=== PATIENT | female | born 1935 | race Caucasian/White ===

== ENCOUNTER 2017-04-11 09:48 | Emergency (ER) | payer MEDICARE, OTHER ==
[2017-04-11] MEDS ORDERED: DIPH,PERTUS(ACELL)TETVAC-LF 0.5 ML VIAL IM ONE (10:16)
--- NOTE | 2017-04-11 10:35 | ED ---
Wound/Laceration HPI - General Chief Complaint: Wound/Laceration Stated Complaint: fall, head injury Time Seen by Provider: 04/11/17 10:03 Source: patient Mode of arrival: ambulatory Limitations: no limitations - History of Present Illness Initial Comments: 81-year-old female presenting for evaluation of fall with head injury and laceration. She states that she was sleeping and for an unknown reason fell out of bed, hitting her head on her nightstand. She states this occurred at about 4 AM as she was immediately able to look up and see what time it was. She denies any loss of consciousness after hitting her head and was able to get up on her own. There is significant bleeding and she was able to control it on her own. She called her family and they came over to evaluate her laceration. Upon inspection there requested that she come to the ED for further treatment and evaluation. She denies any associated ataxia, dizziness, lightheadedness, change in vision, slurred speech, weakness, nausea, vomiting, or difficulty swallowing. She further denies any anticoagulation use. - Related Data Home Medications Medication Instructions Recorded Confirmed ALPRAZolam [Xanax] 0.25 mg PO Q8HR PRN 04/11/17 04/11/17 Acetaminophen with Codeine 1 tab PO QID PRN 04/11/17 04/11/17 [Tylenol w/codeine #3] Simvastatin [Zocor] 40 mg PO HS 04/11/17 04/11/17 diphenhydrAMINE HCL [Benadryl] 25 mg PO HS PRN 04/11/17 04/11/17 Allergies Allergy/AdvReac Type Severity Reaction Status Date / Time bee pollen Allergy Anaphylaxis Verified 04/11/17 11:06 cat dander Allergy Cough Verified 04/11/17 11:06 maple tree Allergy Cough Uncoded 04/11/17 09:56 Review of Systems ROS Statement: Those systems with pertinent positive or pertinent negative responses have been documented in the HPI. ROS Other: All systems not noted in ROS Statement are negative. Constitutional: Denies: fever, chills Eyes: Denies: eye pain, vision change ENT: Denies: ear pain, throat pain, dental pain Respiratory: Denies: cough, dyspnea Cardiovascular: Denies: chest pain, palpitations Gastrointestinal: Denies: abdominal pain, nausea, vomiting Musculoskeletal: Denies: back pain, arthralgia, myalgia Skin: Reports: lesions, other (Laceration to scalp) Neurological: Denies: headache, weakness, numbness, paresthesias, confusion, abnormal gait, vertigo Hematological/Lymphatic: Denies: easy bleeding, easy bruising Past Medical History Past Medical History: Hyperlipidemia, Osteoarthritis (OA) Additional Past Medical History / Comment(s): Chronic kidney disease pt states it is asymptomatic and the is just watching it History of Any Multi-Drug Resistant Organisms: None Reported Past Surgical History: Section, Heart Catheterization, Tonsillectomy Additional Past Surgical History / Comment(s): pt had eye tooth extraction on 04/06/17, wisdom, 2 ectopic pregnancies, left wrist Past Psychological History: Anxiety, Depression Smoking Status: Never smoker Past Alcohol Use History: Rare Past Drug Use History: None Reported General Exam Limitations: no limitations General appearance: alert, in no apparent distress Head exam: Present: normocephalic, other (Laceration to the left side of parietal scalp) Eye exam: Present: normal appearance, PERRL, EOMI. Absent: scleral icterus, conjunctival injection, periorbital swelling ENT exam: Present: normal exam, mucous membranes moist Neck exam: Present: normal inspection. Absent: tenderness, meningismus, lymphadenopathy Respiratory exam: Present: normal lung sounds bilaterally. Absent: respiratory distress, wheezes, rales, rhonchi, stridor Cardiovascular Exam: Present: regular rate, normal rhythm, normal heart sounds. Absent: systolic murmur, diastolic murmur, rubs, gallop, clicks GI/Abdominal exam: Present: soft. Absent: distended, tenderness, guarding, rebound, rigid Rectal exam: Present: deferred Extremities exam: Present: normal inspection, full ROM, normal capillary refill. Absent: tenderness, pedal edema, joint swelling, calf tenderness Back exam: Present: normal inspection. Absent: tenderness Neurological exam: Present: alert, oriented X3, CN II-XII intact. Absent: altered Psychiatric exam: Present: normal affect, normal mood Skin exam: Present: warm, dry, other (1 inch laceration to the left side of the parietal scalp) Course Vital Signs 04/11/17 09:48 Temperature 99.3 F Pulse Rate 80 Respiratory 18 Rate Blood Pressure 140/65 O2 Sat by Pulse 96 Oximetry Medical Decision Making - Medical Decision Making 81-year-old female presenting for evaluation of head injury with laceration to the left parietal scalp. She states this occurred at about 4 AM due to falling out of her bed. She denies any loss of consciousness or anticoagulation use. Bleeding controlled prior to arrival to the ED. On physical examination she does have a 1 inch laceration to the before mentioned area, bleeding controlled, and there is no extension to the bone/galea. Cranial nerves II through XII intact without focal neurologic deficit in vision is at her baseline. Patient observed ambulating with normal gait and station. We'll obtain CT head and neck, update her tetanus, and await results before repair laceration. Disposition Clinical Impression: Scalp laceration, Head injury, Fall Disposition: HOME SELF-CARE Condition: Stable Instructions: Staple Care (ED), Fall Prevention (ED) Referrals: Jena Logan MD [Primary Care Provider] - 1-2 days Time of Disposition: 11:54
--- NOTE | 2017-04-11 10:57 | CT ---
EXAMINATION TYPE: CT brain mini mi DATE OF EXAM: 04/11/2017 COMPARISON: NONE HISTORY: Fall, head injury CT DLP: brain 1054.2, Cervical 306.2 mGycm Automated exposure control for dose reduction was used. TECHNIQUE: CT scan of the head and cervical spine are performed without contrast. FINDINGS: BRAIN: Central structures are midline. There is no evidence of hydrocephalus. There is diffuse perive ntricular white matter lucency, compatible with chronic white matter ischemic change. There is lucenc y within the vicente which may be artifactual or may represent an old pontine infarct. No acute focal le david, mass effect or midline shift is seen. I do not see evidence of intracranial blood. Visualized p ortions of the paranasal sinuses and mastoids are clear. No depressed skull fracture is seen. The zyg omatic arches are intact. The pterygoid plates are intact. The rivera of the orbits and visualized por tions of the maxillary sinus are intact. IMPRESSION: 1. NO ACUTE INTRACRANIAL ABNORMALITY. 2. CHRONIC WHITE MATTER ISCHEMIC CHANGE. 3. I CANNOT EXCLUDE AN OLD PONTINE INFARCT. CERVICAL SPINE: There are mild emphysematous changes within the lungs. Prevertebral soft tissues are normal. There is a minimal retrograde listhesis of C5 on C6. Vertebral body height and alignment are otherwis e maintained. Atlantoaxial relationships are normal. There is disc space loss and hypertrophic spondy losis at C4-5, C5-6 and C6-7. There is uncovertebral joint disease at these levels. There is facet ar thropathy on the left at C3-4 no fracture is seen. IMPRESSION: 1. NO ACUTE OSSEOUS LESION. 2. DEGENERATIVE CHANGE. 3. MILD EMPHYSEMATOUS CHANGES WITHIN THE LUNGS.
[2017-04-11 12:16] VITALS: BP 138/74; PULSE 82; RESP 17; TEMP 98.7
== END 2017-04-11 12:15 | disposition home or self-care (01) ==
LOC: EC 09:48
DX: S01.01XA Laceration without foreign body of scalp, initial encounter (principal); E78.5 Hyperlipidemia, unspecified; Z79.899 Other long term (current) drug therapy; Z91.030 Bee allergy status; Z91.09 Other allergy status, other than to drugs and biological substances; Z23 Encounter for immunization; W06.XXXA Fall from bed, initial encounter
CPT/HCPCS: 70450; 72125; 90471; 90715; 99283

== ENCOUNTER 2018-01-03 07:31 | Emergency (ER) | payer MEDICARE, OTHER ==
[2018-01-03 07:41] VITALS: BP 128/87; PULSE 76; RESP 18; TEMP 98.8
[2018-01-03] MEDS ORDERED: methylPREDNISolone SOD SUCCI 125 MG/2 ML VIAL IM ONE (07:57)
--- NOTE | 2018-01-03 07:59 | ED ---
General Adult HPI - General Chief complaint: Skin/Abscess/Foreign Body Stated complaint: Poison Kalpana Time Seen by Provider: 01/03/18 07:35 Source: patient, RN notes reviewed Mode of arrival: ambulatory Limitations: no limitations - History of Present Illness Initial comments: This is an 82-year-old female presents emergency department stating that she got into some poison kalpana on Wednesday and she's been trying to put up with the itch since but she states she normally needs some steroids. Patient has raised erythematous patch on her right forehead and left cheek right wrist and left thigh. Patient states the areas are very itchy. Are not spreading. Patient states she gets this quite a bit. Patient states she's been using calamine lotion which helped only a little bit. Patient denies any difficulty swallowing or difficulty breathing. Patient denies any other symptoms at this time. - Related Data Home Medications Medication Instructions Recorded Confirmed ALPRAZolam [Xanax] 0.25 mg PO Q8HR PRN 04/11/17 04/11/17 Acetaminophen with Codeine 1 tab PO QID PRN 04/11/17 04/11/17 [Tylenol w/codeine #3] Simvastatin [Zocor] 40 mg PO HS 04/11/17 04/11/17 diphenhydrAMINE HCL [Benadryl] 25 mg PO HS PRN 04/11/17 04/11/17 Previous Rx's Medication Instructions Recorded predniSONE 40 mg PO DAILY #8 tab 01/03/18 Allergies Allergy/AdvReac Type Severity Reaction Status Date / Time bee pollen Allergy Anaphylaxis Verified 01/03/18 07:41 cat dander Allergy Cough Verified 01/03/18 07:41 maple tree Allergy Cough Uncoded 01/03/18 07:41 Review of Systems ROS Statement: Those systems with pertinent positive or pertinent negative responses have been documented in the HPI. ROS Other: All systems not noted in ROS Statement are negative. Past Medical History Past Medical History: Hyperlipidemia, Osteoarthritis (OA) Additional Past Medical History / Comment(s): stage 3 Chronic kidney disease pt states it is asymptomatic and the is just watching it History of Any Multi-Drug Resistant Organisms: None Reported Past Surgical History: Section, Heart Catheterization, Tonsillectomy Additional Past Surgical History / Comment(s): pt had eye tooth extraction on 04/06/17, wisdom, 2 ectopic pregnancies, left wrist Past Psychological History: Anxiety, Depression Smoking Status: Never smoker Past Alcohol Use History: Rare Past Drug Use History: None Reported General Exam - General Exam Comments Initial Comments: GENERAL Patient is well-developed and well-nourished. Patient is in mild distress. EYES Patient's pupils are equal and round. Extraocular motion is intact SKIN Patient has some redness and slightly raised area on the right side of her forehead and the left side of her face as well as her right wrist below where gloves would've been. Patient also states she has an area on her left thigh but she has pants on at this time. NEURO The patient is alert and oriented 3 PYSCH Patient has normal interpersonal interactions. MUSCULOSKELETAL All 4 times and full range of motion. Limitations: no limitations Course Vital Signs 01/03/18 07:38 Temperature 98.8 F Pulse Rate 76 Respiratory 18 Rate Blood Pressure 128/87 O2 Sat by Pulse 98 Oximetry Disposition Clinical Impression: Poison kalpana Disposition: HOME SELF-CARE Condition: Good Instructions: Poison Kalpana (ED) Additional Instructions: Patient can also try to use some hydrocortisone ointment or lotion. Patient can also take Benadryl for the itching particularly at night before bedtime. If symptoms worsen or change patient can return to the emergency department follow-up with primary medical care doctor Prescriptions: predniSONE 40 mg PO DAILY #8 tab Is patient prescribed a controlled substance at d/c from ED?: No Referrals: Jena Logan MD [Primary Care Provider] - 1-2 days Time of Disposition: 07:59
== END 2018-01-03 08:14 | disposition home or self-care (01) ==
LOC: EC 07:31
DX: L23.7 Allergic contact dermatitis due to plants, except food (principal); E78.5 Hyperlipidemia, unspecified; Z95.5 Presence of coronary angioplasty implant and graft; Z91.030 Bee allergy status; Z91.09 Other allergy status, other than to drugs and biological substances; Z79.899 Other long term (current) drug therapy
CPT/HCPCS: 99282; 96372; J2930

== ENCOUNTER → 2018-01-31 | Outpatient (CLI) | payer MEDICARE, OTHER ==
[2018-01-31 14:16] LABS: Basophils % (A) 1 %; Eosinophils # (A) 0.2 k/uL (0-0.7); Eosinophils % (A) 3 %; HGB 12.9 gm/dL (11.4-16.0); Lymphocytes # (A) 1.1 k/uL (1.0-4.8); Lymphocytes % (A) 22 %; MCH 32.9 pg (25.0-35.0); MCHC 33.1 g/dL (31.0-37.0); MCV 99.4 fL (80.0-100.0); Mean Platelet Volume 7.5; Monocytes # (A) 0.2 k/uL (0-1.0); Monocytes % (A) 5 %; Neutrophils # (A) 3.3 k/uL (1.3-7.7); Neutrophils % (A) 68 %; Platelet Count 248 k/uL (150-450); RBC 3.92 m/uL (3.80-5.40); RDW 13.8 % (11.5-15.5); WBC 4.9 k/uL (3.8-10.6)
[2018-01-31 14:36] LABS: Calcium 9.9 mg/dL (8.4-10.2); Potassium 4.8 mmol/L (3.5-5.1); Uric Acid 4.4 mg/dL (3.7-7.4)
[2018-01-31 18:42] LABS: Vitamin D 25 Hydroxy 38.2 ng/mL (30.0-100.0)
[2018-01-31 20:04] LABS: Parathyroid Hormone Intact 81.9 pg/mL (14.0-72.0)
== END | disposition home or self-care (01) ==
LOC: LABWHC1 13:13
PROVIDERS: ATTEND Family Medicine
DX: N18.3 Chronic kidney disease, stage 3 (moderate) (principal)
CPT/HCPCS: 36415; 80048; 82043; 82306; 82570; 83735; 83970; 84100; 84550; 85025

== ENCOUNTER 2018-04-14 18:56 | Emergency (ER) | payer MEDICARE, OTHER ==
[2018-04-14] MEDS ORDERED: SODIUM CHLORIDE 0.9% 500 ML IV ONE (19:33)
--- NOTE | 2018-04-14 19:35 | ED ---
General Adult HPI - General Chief complaint: Dizziness Stated complaint: dizziness Time Seen by Provider: 04/14/18 19:04 Source: patient, RN notes reviewed, old records reviewed Mode of arrival: wheelchair Limitations: no limitations - History of Present Illness Initial comments: 82-year-old female presents for evaluation of lightheadedness and dizziness throughout the day today. Patient denies syncopal episode. Denies focal numbness or weakness. Complains of some generalized weakness as well. Denies chest pain. Denies dyspnea. Denies cough. Denies abdominal pain or nausea vomiting. She does report some diarrhea which is resolving. She has intermittent constipation and diarrhea secondary to use of Tylenol 3 treated with laxatives. This is unchanged over the past 15 years. Patient denies palpitations. Denies fever or chills. - Related Data Home Medications Medication Instructions Recorded Confirmed ALPRAZolam [Xanax] 0.25 mg PO Q8HR PRN 04/11/17 04/14/18 Acetaminophen with Codeine 1 tab PO TID PRN 04/11/17 04/14/18 [Tylenol w/codeine #3] Simvastatin [Zocor] 40 mg PO HS 04/11/17 04/14/18 diphenhydrAMINE HCL [Benadryl] 25 mg PO HS PRN 04/11/17 04/14/18 Allergies Allergy/AdvReac Type Severity Reaction Status Date / Time bee pollen Allergy Anaphylaxis Verified 04/14/18 19:05 cat dander Allergy Cough Verified 04/14/18 19:05 maple tree Allergy Cough Uncoded 04/14/18 19:00 Review of Systems ROS Statement: Those systems with pertinent positive or pertinent negative responses have been documented in the HPI. ROS Other: All systems not noted in ROS Statement are negative. Past Medical History Past Medical History: Hyperlipidemia, Osteoarthritis (OA) Additional Past Medical History / Comment(s): stage 3 Chronic kidney disease pt states it is asymptomatic and the is just watching it History of Any Multi-Drug Resistant Organisms: None Reported Past Surgical History: Section, Heart Catheterization, Tonsillectomy Additional Past Surgical History / Comment(s): pt had eye tooth extraction on 04/06/17, wisdom, 2 ectopic pregnancies, left wrist Past Psychological History: Anxiety, Depression Smoking Status: Never smoker Past Alcohol Use History: Occasional Past Drug Use History: None Reported General Exam Limitations: no limitations General appearance: alert, in no apparent distress Head exam: Present: atraumatic, normocephalic Eye exam: Present: normal appearance, PERRL ENT exam: Present: mucous membranes dry Neck exam: Present: normal inspection. Absent: tenderness Respiratory exam: Present: normal lung sounds bilaterally. Absent: respiratory distress, wheezes Cardiovascular Exam: Present: regular rate, normal rhythm GI/Abdominal exam: Present: soft. Absent: distended, tenderness Extremities exam: Present: normal inspection, normal capillary refill. Absent: pedal edema Neurological exam: Present: alert, oriented X3, CN II-XII intact. Absent: motor sensory deficit Psychiatric exam: Present: normal affect, normal mood Skin exam: Present: warm, dry, intact. Absent: cyanosis, diaphoretic Course Vital Signs 04/14/18 04/14/18 04/14/18 18:59 19:39 20:00 Temperature 98.2 F Pulse Rate 75 70 80 Pulse Rate [ Sitting Ventilation Mechanic] Pulse Rate [ Standing Ventilation Mechanic ] Pulse Rate [ Supine Ventilation Mechanic] Respiratory 20 16 16 Rate Blood Pressure 157/76 166/84 Blood Pressure [Right Arm Sitting] Blood Pressure [Right Arm Standing] Blood Pressure [Right Arm Supine] O2 Sat by Pulse 99 98 98 Oximetry 04/14/18 04/14/18 20:22 21:27 Temperature Pulse Rate Pulse Rate [ 69 Sitting Ventilation Mechanic] Pulse Rate [ 69 Standing Ventilation Mechanic ] Pulse Rate [ 71 Supine Ventilation Mechanic] Respiratory 16 Rate Blood Pressure Blood Pressure 158/68 [Right Arm Sitting] Blood Pressure 151/74 [Right Arm Standing] Blood Pressure 167/73 [Right Arm Supine] O2 Sat by Pulse Oximetry EKG Findings - EKG Comments: EKG Findings:: EKG: Sinus rhythm with PVC, rate of 71, WI interval 172, QRS duration 74, QTC [address] segment elevation or depression Medical Decision Making - Medical Decision Making 82-year-old female presenting with lightheadedness and dizziness. Patient has nonfocal neurologic exam. She is well-appearing. No ataxia. Workup in the emergency department reveals normal sinus rhythm on EKG, chest x-ray with no acute cardiopulmonary disease, normal CBC, normal CMP, negative urinalysis. Head CT is obtained negative for intracranial hemorrhage or mass effect. On reevaluation I did have a lengthy discussion with the patient and her daughter, patient does report report that tomorrow is the anniversary of her 's . Both her and her daughter think this may be related to anxiety. They are offered observation for further monitoring, para they declined, prefer discharge at this time. Patient will be present with any change in her worsening symptoms. - Lab Data Result diagrams: 04/14/18 19:40 04/14/18 19:40 Lab Results 04/14/18 04/14/18 04/14/18 Range/Units 19:40 19:40 19:40 WBC 5.3 (3.8-10.6) k/uL RBC 3.66 L (3.80-5.40) m/uL Hgb 12.4 (11.4-16.0) gm/dL Hct 35.8 (34.0-46.0) % MCV 97.8 (80.0-100.0) fL MCH 33.8 (25.0-35.0) pg MCHC 34.6 (31.0-37.0) g/dL RDW 12.7 (11.5-15.5) % Plt Count 186 (150-450) k/uL Neutrophils % 64 % Lymphocytes % 25 % Monocytes % 6 % Eosinophils % 3 % Basophils % 1 % Neutrophils # 3.4 (1.3-7.7) k/uL Lymphocytes # 1.3 (1.0-4.8) k/uL Monocytes # 0.3 (0-1.0) k/uL Eosinophils # 0.2 (0-0.7) k/uL Basophils # 0.0 (0-0.2) k/uL PT (9.0-12.0) sec INR (<1.2) Sodium 137 (137-145) mmol/L Potassium 4.4 (3.5-5.1) mmol/L Chloride 105 (98-107) mmol/L Carbon Dioxide 23 (22-30) mmol/L Anion Gap 9 mmol/L BUN 21 H (7-17) mg/dL Creatinine 0.97 (0.52-1.04) mg/dL Est GFR (CKD-EPI)AfAm 63 (>60 ml/min/1.73 sqM) Est GFR (CKD-EPI)NonAf 55 (>60 ml/min/1.73 sqM) Glucose 96 (74-99) mg/dL Plasma Lactic Acid Tony 0.5 L (0.7-2.0) mmol/L Calcium 9.3 (8.4-10.2) mg/dL Total Bilirubin 0.5 (0.2-1.3) mg/dL AST 21 (14-36) U/L ALT 27 (9-52) U/L Alkaline Phosphatase 76 (38-126) U/L Total Creatine Kinase (30-135) U/L CK-MB (CK-2) (0.0-2.4) ng/mL CK-MB (CK-2) Rel Index Troponin I (0.000-0.034) ng/mL Total Protein 6.4 (6.3-8.2) g/dL Albumin 3.8 (3.5-5.0) g/dL Urine Color Urine Appearance (Clear) Urine pH (5.0-8.0) Ur Specific [place] (1.001-1.035) Urine Protein (Negative) Urine Glucose (UA) (Negative) Urine Ketones (Negative) Urine Blood (Negative) Urine Nitrite (Negative) Urine Bilirubin (Negative) Urine Urobilinogen (<2.0) mg/dL Ur Leukocyte Esterase (Negative) Urine RBC (0-5) /hpf Urine WBC (0-5) /hpf Ur Squamous Epith Cells (0-4) /hpf Urine Bacteria (None) /hpf 04/14/18 04/14/18 04/14/18 Range/Units 19:40 19:40 20:00 WBC (3.8-10.6) k/uL RBC (3.80-5.40) m/uL Hgb (11.4-16.0) gm/dL Hct (34.0-46.0) % MCV (80.0-100.0) fL MCH (25.0-35.0) pg MCHC (31.0-37.0) g/dL RDW (11.5-15.5) % Plt Count (150-450) k/uL Neutrophils % % Lymphocytes % % Monocytes % % Eosinophils % % Basophils % % Neutrophils # (1.3-7.7) k/uL Lymphocytes # (1.0-4.8) k/uL Monocytes # (0-1.0) k/uL Eosinophils # (0-0.7) k/uL Basophils # (0-0.2) k/uL PT 10.8 (9.0-12.0) sec INR 1.1 (<1.2) Sodium (137-145) mmol/L Potassium (3.5-5.1) mmol/L Chloride (98-107) mmol/L Carbon Dioxide (22-30) mmol/L Anion Gap mmol/L BUN (7-17) mg/dL Creatinine (0.52-1.04) mg/dL Est GFR (CKD-EPI)AfAm (>60 ml/min/1.73 sqM) Est GFR (CKD-EPI)NonAf (>60 ml/min/1.73 sqM) Glucose (74-99) mg/dL Plasma Lactic Acid Tnoy (0.7-2.0) mmol/L Calcium (8.4-10.2) mg/dL Total Bilirubin (0.2-1.3) mg/dL AST (14-36) U/L ALT (9-52) U/L Alkaline Phosphatase (38-126) U/L Total Creatine Kinase 62 (30-135) U/L CK-MB (CK-2) 0.7 (0.0-2.4) ng/mL CK-MB (CK-2) Rel Index 1.1 Troponin I <0.012 (0.000-0.034) ng/mL Total Protein (6.3-8.2) g/dL Albumin (3.5-5.0) g/dL Urine Color Light Yellow Urine Appearance Clear (Clear) Urine pH 5.0 (5.0-8.0) Ur Specific [place] 1.006 (1.001-1.035) Urine Protein Negative (Negative) Urine Glucose (UA) Negative (Negative) Urine Ketones Negative (Negative) Urine Blood Small H (Negative) Urine Nitrite Negative (Negative) Urine Bilirubin Negative (Negative) Urine Urobilinogen <2.0 (<2.0) mg/dL Ur Leukocyte Esterase Negative (Negative) Urine RBC 1 (0-5) /hpf Urine WBC 1 (0-5) /hpf Ur Squamous Epith Cells 1 (0-4) /hpf Urine Bacteria Rare H (None) /hpf Disposition Clinical Impression: Dehydration, Near syncope Disposition: HOME SELF-CARE Condition: Good Instructions: Near Syncope (ED), Dehydration (ED), Anxiety (ED) Is patient prescribed a controlled substance at d/c from ED?: No Referrals: Jena Logan MD [Primary Care Provider] - 1-2 days Time of Disposition: 22:23
[2018-04-14 19:40] VITALS: RESP 16
[2018-04-14 19:58] LABS: Basophils % (A) 1 %; Eosinophils # (A) 0.2 k/uL (0-0.7); Eosinophils % (A) 3 %; HCT 35.8 % (34.0-46.0); HGB 12.4 gm/dL (11.4-16.0); Lymphocytes # (A) 1.3 k/uL (1.0-4.8); Lymphocytes % (A) 25 %; MCH 33.8 pg (25.0-35.0); MCHC 34.6 g/dL (31.0-37.0); MCV 97.8 fL (80.0-100.0); Monocytes # (A) 0.3 k/uL (0-1.0); Monocytes % (A) 6 %; Neutrophils # (A) 3.4 k/uL (1.3-7.7); Neutrophils % (A) 64 %; Platelet Count 186 k/uL (150-450); RBC 3.66 m/uL (3.80-5.40); RDW 12.7 % (11.5-15.5); WBC 5.3 k/uL (3.8-10.6)
[2018-04-14 20:03] LABS: INR 1.1 (<1.2); Prothrombin Time 10.8 sec (9.0-12.0)
[2018-04-14 20:08] LABS: Albumin 3.8 g/dL (3.5-5.0); Calcium 9.3 mg/dL (8.4-10.2); Potassium 4.4 mmol/L (3.5-5.1); Total Bilirubin 0.5 mg/dL (0.2-1.3); Total Protein 6.4 g/dL (6.3-8.2)
[2018-04-14 20:10] LABS: Appearance,Urine Clear (Clear); Bacteria,Urine Rare /hpf; Bilirubin,Urine Negative (Negative); Blood,Urine Small (Negative); Color,Urine Light Yellow; Glucose,Urine (UA) Negative (Negative); Ketones,Urine Negative (Negative); Leukocyte Esterase,Urine Negative (Negative); Nitrite,Urine Negative (Negative); Protein,Urine Negative (Negative); RBC,Urine 1 /hpf (0-5); Specific Gravity,Urine 1.006 (1.001-1.035); Squamous Epithelial Cell,Urine 1 /hpf (0-4); Urobilinogen,Urine <2.0 mg/dL (<2.0); WBC,Urine 1 /hpf (0-5)
[2018-04-14 20:10] LABS: Creatine Kinase 62 U/L (30-135)
--- NOTE | 2018-04-14 20:16 | XR ---
EXAMINATION TYPE: XR chest 2V DATE OF EXAM: 04/14/2018 COMPARISON: None HISTORY: Weakness. Dizziness TECHNIQUE: Frontal and lateral views of the chest are obtained. FINDINGS: There is no heart failure nor confluent pneumonic infiltrate. Costophrenic angles are brian r. Thoracic aorta is atheromatous. There is no pleural effusion. There are chest leads. IMPRESSION: No active cardiopulmonary disease.
[2018-04-14 20:23] LABS: Creatine Kinase MB 0.7 ng/mL (0.0-2.4); Troponin I <0.012 ng/mL (0.000-0.034)
--- NOTE | 2018-04-14 21:29 | CT ---
EXAMINATION TYPE: CT brain wo con DATE OF EXAM: 04/14/2018 COMPARISON: 04/11/2017 HISTORY: Dizziness. CT DLP: 1042.2 mGycm Automated exposure control for dose reduction was used. FINDINGS: There is mild cerebral cortical atrophy. There is no mass effect nor midline shift. There is no sign of intracranial hemorrhage. The calvarium is intact. IMPRESSION: MILD ATROPHY. NO ACUTE INTRACRANIAL ABNORMALITY. NO CHANGE.
[2018-04-14 22:24] VITALS: BP 178/78; PULSE 84; TEMP 98
== END 2018-04-14 22:43 | disposition home or self-care (01) ==
LOC: EC 18:56
DX: E86.0 Dehydration (principal); E78.5 Hyperlipidemia, unspecified; Z91.018 Allergy to other foods; Z91.048 Other nonmedicinal substance allergy status; Z79.899 Other long term (current) drug therapy
CPT/HCPCS: 36415; 70450; 71046; 80053; 81001; 82550; 82553; 83605; 84484; 85025; 85610; 93005; 99285

== ENCOUNTER → 2018-08-23 | Outpatient (CLI) | payer MEDICARE, OTHER ==
[2018-08-23 16:19] LABS: Basophils # (A) 0.1 k/uL (0-0.2); Basophils % (A) 1 %; Eosinophils # (A) 0.2 k/uL (0-0.7); Eosinophils % (A) 4 %; HCT 39.8 % (34.0-46.0); HGB 12.4 gm/dL (11.4-16.0); Lymphocytes # (A) 1.7 k/uL (1.0-4.8); Lymphocytes % (A) 28 %; MCH 31.8 pg (25.0-35.0); MCHC 31.1 g/dL (31.0-37.0); MCV 102.3 fL (80.0-100.0); Macrocytosis Slight; Mean Platelet Volume 7.6; Monocytes # (A) 0.3 k/uL (0-1.0); Monocytes % (A) 5 %; Neutrophils # (A) 3.6 k/uL (1.3-7.7); Neutrophils % (A) 60 %; Platelet Count 197 k/uL (150-450); RBC 3.89 m/uL (3.80-5.40); RDW 13.1 % (11.5-15.5)
[2018-08-24 02:27] LABS: Anion Gap 12.7 mmol/L (4.00-12.00); Calcium 9.6 mg/dL (8.7-10.3); Carbon Dioxide 25.3 mmol/L (21.6-31.8); Phosphorus 4.2 mg/dL (2.4-5.1); Potassium 4.2 mmol/L (3.5-5.5)
[2018-08-24 02:31] LABS: Parathyroid Hormone Intact 59.5 pg/mL (14.0-72.0)
[2018-08-24 02:42] LABS: Vitamin D 25 Hydroxy 58.9 ng/mL (30.0-100.0)
== END | disposition home or self-care (01) ==
LOC: LABWHC1 14:47
PROVIDERS: ATTEND Family Medicine
DX: N18.3 Chronic kidney disease, stage 3 (moderate) (principal); E55.9 Vitamin D deficiency, unspecified; N25.81 Secondary hyperparathyroidism of renal origin
CPT/HCPCS: 36415; 80048; 82043; 82306; 82570; 83735; 83970; 84100; 84550; 85025

== ENCOUNTER 2019-02-18 15:01 | Emergency (ER) | payer MEDICARE, OTHER ==
[2019-02-18 15:17] VITALS: BP 131/72; PULSE 75; RESP 18; TEMP 99.1
[2019-02-18] MEDS ORDERED: LIDOCAINE 5% PATCH TOPICAL STA ×2 (15:31→17:24)
[2019-02-18] MEDS ORDERED: MORPHINE SULFATE 2 MG/ML SYRINGE IVP ONE (15:31)
[2019-02-18] MEDS ORDERED: predniSONE 50 MG TAB PO STA (15:32)
[2019-02-18] MEDS ORDERED: MORPHINE SULFATE 2 MG/ML SYRINGE IM STA (15:52)
--- NOTE | 2019-02-18 17:06 | ED ---
Back Pain HPI - General Chief Complaint: Back Pain/Injury Stated Complaint: Back pain Time Seen by Provider: 02/18/19 15:17 Source: patient Limitations: no limitations - History of Present Illness Initial Comments: Patient is an 83-year-old female with history of spinal stenosis presents to the emergency Department with low back pain. Patient reports chronic back pain with occasional flareups of this one. Patient reports the current acute back pain started 2 days ago. Patient states the pain originates in the lumbosacral region and radiates along the posterior aspect of her left upper leg to the popliteal region. Patient reports taking [id number] analgesics with minimal improvement. Patient also reports applying cold, warm compress and taking hot showers with minimal improvement. Patient reports the pain is exacerbated with flexion and extension. Patient reports the pain is dull in nature. Patient denies saddle paresthesia, urinary or bladder incontinence. No red flags. - Related Data Home Medications Medication Instructions Recorded Confirmed ALPRAZolam [Xanax] 0.25 mg PO Q8HR PRN 04/11/17 02/18/19 Acetaminophen with Codeine 1 tab PO TID PRN 04/11/17 02/18/19 [Tylenol w/codeine #3] Previous Rx's Medication Instructions Recorded Cyclobenzaprine [Flexeril] 5 mg PO TID PRN #15 tablet 02/18/19 predniSONE 50 mg PO DAILY #5 tab 02/18/19 Allergies Allergy/AdvReac Type Severity Reaction Status Date / Time bee pollen Allergy Anaphylaxis Verified 02/18/19 16:50 cat dander Allergy Cough Verified 02/18/19 16:50 maple tree Allergy Cough Uncoded 02/18/19 16:51 Review of Systems ROS Statement: Those systems with pertinent positive or pertinent negative responses have been documented in the HPI. ROS Other: All systems not noted in ROS Statement are negative. Past Medical History Past Medical History: Hyperlipidemia, Osteoarthritis (OA) Additional Past Medical History / Comment(s): stage 3 Chronic kidney disease pt states it is asymptomatic and the is just watching it History of Any Multi-Drug Resistant Organisms: None Reported Past Surgical History: Section, Heart Catheterization, Tonsillectomy Additional Past Surgical History / Comment(s): pt had eye tooth extraction on 04/06/17, wisdom, 2 ectopic pregnancies, left wrist Past Psychological History: Anxiety Smoking Status: Never smoker Past Alcohol Use History: Occasional Past Drug Use History: None Reported General Exam Limitations: no limitations General appearance: alert, in no apparent distress, obese Head exam: Present: atraumatic, normocephalic, normal inspection Eye exam: Present: normal appearance, PERRL, EOMI Pupils: Present: normal accommodation ENT exam: Present: normal exam, normal oropharynx, mucous membranes moist, TM's normal bilaterally, normal external ear exam Neck exam: Present: normal inspection, full ROM Respiratory exam: Present: normal lung sounds bilaterally Cardiovascular Exam: Present: regular rate, normal rhythm, normal heart sounds Extremities exam: Present: normal inspection, full ROM Back exam: Present: normal inspection, tenderness (Tenderness on palpation), paraspinal tenderness (Lumbosacral region), vertebral tenderness (Lumbosacral), other (Positive leg raise test). Absent: full ROM (Limited range of motion with flexion and extension due to pain) Neurological exam: Present: alert, oriented X3 Psychiatric exam: Present: normal affect, normal mood Skin exam: Present: warm, intact, normal color Course Vital Signs 02/18/19 15:13 Temperature 99.1 F Pulse Rate 75 Respiratory 18 Rate Blood Pressure 131/72 O2 Sat by Pulse 95 Oximetry Medical Decision Making - Medical Decision Making Patient is an 83-year-old male with history of spinal stenosis presents to the emergency Department for low back pain. Patient was given a Lidoderm patch, prednisone and morphine. On reevaluation patient reports feeling much better and is ready to go home. Patient will be discharged with Flexeril. Patient advised not to drive or operate heavy machinery when taking the medication. I suspect the acute low back pain to be an exacerbation of her spinal stenosis. Patient advised to follow-up with orthopedics. Strict return parameters were thoroughly discussed the patient was understanding and agreeable. Case discusse d with physician. Disposition Clinical Impression: Mechanical back pain Disposition: HOME SELF-CARE Condition: Stable Instructions (If sedation given, give patient instructions): Acute Low Back Pain (ED) Additional Instructions: Please follow up with an weapons specialist. Please return to emergency department if symptoms worsen. Prescriptions: Cyclobenzaprine [Flexeril] 5 mg PO TID PRN #15 tablet PRN Reason: Muscle Spasm predniSONE 50 mg PO DAILY #5 tab Is patient prescribed a controlled substance at d/c from ED?: No Referrals: Jena Logan MD [Primary Care Provider] - 1-2 days Taras Lawrence MD [STAFF PHYSICIAN] - 1-2 days Time of Disposition: 17:07
== END 2019-02-18 17:33 | disposition home or self-care (01) ==
LOC: EC 15:01
DX: M54.5 Low back pain (principal); F41.9 Anxiety disorder, unspecified; N18.3 Chronic kidney disease, stage 3 (moderate); Z91.030 Bee allergy status; Z91.09 Other allergy status, other than to drugs and biological substances; Z95.5 Presence of coronary angioplasty implant and graft
CPT/HCPCS: 99283; 96372; J2270; J7512

== ENCOUNTER → 2019-04-11 | Outpatient (CLI) | payer MEDICARE, OTHER ==
[2019-04-11 14:44] LABS: HCT 38.1 % (34.0-46.0); HGB 12.8 gm/dL (11.4-16.0); MCH 34.1 pg (25.0-35.0); MCHC 33.6 g/dL (31.0-37.0); MCV 101.2 fL (80.0-100.0); Macrocytosis Slight; Mean Platelet Volume 8.3; Platelet Count 201 k/uL (150-450); RBC 3.76 m/uL (3.80-5.40); RDW 13.3 % (11.5-15.5); WBC 6.6 k/uL (3.8-10.6)
[2019-04-11 18:26] LABS: African American GFR (CKD) 48.4 (60.0-200.0); Anion Gap 14.2 mmol/L (4.00-12.00); Calcium 9.8 mg/dL (8.7-10.3); Carbon Dioxide 21.8 mmol/L (21.6-31.8); Magnesium 1.8 mg/dL (1.5-2.4); Potassium 4.3 mmol/L (3.5-5.5)
== END | disposition home or self-care (01) ==
LOC: LABWHC1 13:31
PROVIDERS: ATTEND Family Medicine
DX: N18.3 Chronic kidney disease, stage 3 (moderate) (principal); R00.0 Tachycardia, unspecified
CPT/HCPCS: 36415; 80048; 83735; 84443; 85027

== ENCOUNTER 2019-04-25 15:57 | Emergency (ER) | payer MEDICARE, OTHER ==
[2019-04-25 16:08] VITALS: RESP 18; TEMP 99
[2019-04-25] MEDS ORDERED: SODIUM CHLORIDE 0.9% 500 ML 500 ML IV STA (18:21)
[2019-04-25 18:51] LABS: Basophils # (A) 0.1 k/uL (0-0.2); Basophils % (A) 2 %; Eosinophils # (A) 0.1 k/uL (0-0.7); Eosinophils % (A) 1 %; HCT 36.2 % (34.0-46.0); HGB 11.6 gm/dL (11.4-16.0); Lymphocytes # (A) 1.1 k/uL (1.0-4.8); Lymphocytes % (A) 18 %; MCH 31.5 pg (25.0-35.0); MCV 98.5 fL (80.0-100.0); Monocytes # (A) 0.4 k/uL (0-1.0); Monocytes % (A) 6 %; Neutrophils # (A) 4.6 k/uL (1.3-7.7); Neutrophils % (A) 72 %; Platelet Count 205 k/uL (150-450); RBC 3.68 m/uL (3.80-5.40); RDW 12.9 % (11.5-15.5); WBC 6.4 k/uL (3.8-10.6)
[2019-04-25 18:58] LABS: Appearance,Urine Clear (Clear); Bilirubin,Urine Negative (Negative); Blood,Urine Small (Negative); Color,Urine Light Yellow; Glucose,Urine (UA) Negative (Negative); Ketones,Urine Trace (Negative); Leukocyte Esterase,Urine Negative (Negative); Mucus,Urine Rare /hpf; Nitrite,Urine Negative (Negative); Protein,Urine Negative (Negative); RBC,Urine 2 /hpf (0-5); Specific Gravity,Urine 1.008 (1.001-1.035); Squamous Epithelial Cell,Urine 1 /hpf (0-4); Urobilinogen,Urine <2.0 mg/dL (<2.0); WBC,Urine 3 /hpf (0-5)
--- NOTE | 2019-04-25 19:02 | ED ---
Arrhythmia/Palpitations HPI - General Chief Complaint: Arrhythmia/Palpitations Stated Complaint: AFIB Time Seen by Provider: 04/25/19 18:20 Source: patient, family, RN notes reviewed Mode of arrival: wheelchair Limitations: no limitations - History of Present Illness Initial Comments: This 83-year-old female presents emergency Department chief complaint of palpitations, elevated heart rate. 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 Patient states that she went home and was angry and states that she sat down to check her blood pressure and heart rate because she felt some palpitations. Her heart rate was pain 150-170. Pat ient states on April 11 she was diagnosed with A. fib and her PCPs office started on metoprolol on Eliquis. Patient states that she did recently see Dr. Jacobs who scheduled him out patient studies including echo. Patient states that she has no symptoms at this time. Symptoms resolved prior arrival. Patient had no chest pain denies any headache, dizziness, nausea vomiting. - Related Data Home Medications Medication Instructions Recorded Confirmed ALPRAZolam [Xanax] 0.25 mg PO Q8HR PRN 04/11/17 02/18/19 Acetaminophen with Codeine 1 tab PO TID PRN 04/11/17 02/18/19 [Tylenol w/codeine #3] Previous Rx's Medication Instructions Recorded Cyclobenzaprine [Flexeril] 5 mg PO TID PRN #15 tablet 02/18/19 predniSONE 50 mg PO DAILY #5 tab 02/18/19 Allergies Allergy/AdvReac Type Severity Reaction Status Date / Time bee pollen Allergy Anaphylaxis Verified 04/25/19 16:08 cat dander Allergy Cough Verified 04/25/19 16:08 maple tree Allergy Cough Uncoded 04/25/19 16:08 Review of Systems ROS Statement: Those systems with pertinent positive or pertinent negative responses have been documented in the HPI. ROS Other: All systems not noted in ROS Statement are negative. Past Medical History Past Medical History: Hyperlipidemia, Osteoarthritis (OA) Additional Past Medical History / Comment(s): stage 3 Chronic kidney disease pt states it is asymptomatic and the is just watching it. new dx: A-fib April 11 History of Any Multi-Drug Resistant Organisms: None Reported Past Surgical History: Section, Heart Catheterization, Tonsillectomy Additional Past Surgical History / Comment(s): pt had eye tooth extraction on 04/06/17, wisdom, 2 ectopic pregnancies, left wrist. epidural injections march 21 Past Psychological History: Anxiety Smoking Status: Never smoker Past Alcohol Use History: Occasional Past Drug Use History: None Reported General Exam Limitations: no limitations General appearance: alert, in no apparent distress Head exam: Present: atraumatic, normocephalic, normal inspection Eye exam: Present: normal appearance, PERRL, EOMI. Absent: scleral icterus, conjunctival injection, periorbital swelling ENT exam: Present: normal exam, normal oropharynx, mucous membranes moist Neck exam: Present: normal inspection, full ROM. Absent: tenderness, meningismus, lymphadenopathy Respiratory exam: Present: normal lung sounds bilaterally. Absent: respiratory distress, wheezes, rales, rhonchi, stridor Cardiovascular Exam: Present: regular rate, normal rhythm, normal heart sounds. Absent: systolic murmur, diastolic murmur, rubs, gallop, clicks GI/Abdominal exam: Present: soft, normal bowel sounds. Absent: distended, tenderness, guarding, rebound, rigid Neurological exam: Present: alert, oriented X3, CN II-XII intact, reflexes normal. Absent: motor sensory deficit Skin exam: Present: warm, dry, intact, normal color. Absent: rash Course Vital Signs 04/25/19 04/25/19 04/25/19 16:04 17:08 18:00 Temperature 99 F Pulse Rate 82 61 Pulse Rate [ 60 Shot Polisher ] Respiratory 18 Rate Blood Pressure 109/60 144/70 O2 Sat by Pulse 96 96 Oximetry 04/25/19 04/25/19 04/25/19 18:30 19:00 19:30 Temperature Pulse Rate 70 70 70 Pulse Rate [ Shot Polisher ] Respiratory 16 18 18 Rate Blood Pressure 142/68 156/77 160/73 O2 Sat by Pulse 95 98 97 Oximetry 04/25/19 19:40 Temperature Pulse Rate 72 Pulse Rate [ Shot Polisher ] Respiratory 18 Rate Blood Pressure 163/66 O2 Sat by Pulse 98 Oximetry EKG Findings - EKG Comments: EKG Findings:: EKG performed at 16:16 no sinus rhythm rate of 71. 150 QRS 72 QT status QTC 364/395 Medical Decision Making - Medical Decision Making 83-year-old female presented for an episode of tachycardia home. Patient states she was worked up and very anxious at this time. Symptoms quickly resolved prior arrival. Patient was recently diagnosed with A. fib she may have had a run of proximal A. fib though she is anticoagulated and metoprolol. Patient scheduled for outpatient echo, stress test and monitored. We discussed return parameters patient agrees with discharged in stable condition. - Lab Data Result diagrams: 04/25/19 17:33 04/25/19 17:33 Lab Results 04/25/19 04/25/19 04/25/19 Range/Units 17:33 17:33 17:33 WBC 6.4 (3.8-10.6) k/uL RBC 3.68 L (3.80-5.40) m/uL Hgb 11.6 (11.4-16.0) gm/dL Hct 36.2 (34.0-46.0) % MCV 98.5 (80.0-100.0) fL MCH 31.5 (25.0-35.0) pg MCHC 32.0 (31.0-37.0) g/dL RDW 12.9 (11.5-15.5) % Plt Count 205 (150-450) k/uL Neutrophils % 72 % Lymphocytes % 18 % Monocytes % 6 % Eosinophils % 1 % Basophils % 2 % Neutrophils # 4.6 (1.3-7.7) k/uL Lymphocytes # 1.1 (1.0-4.8) k/uL Monocytes # 0.4 (0-1.0) k/uL Eosinophils # 0.1 (0-0.7) k/uL Basophils # 0.1 (0-0.2) k/uL PT 11.2 (9.0-12.0) sec INR 1.1 (<1.2) APTT 24.8 (22.0-30.0) sec Sodium 138 (137-145) mmol/L Potassium 4.2 (3.5-5.1) mmol/L Chloride 103 (98-107) mmol/L Carbon Dioxide 26 (22-30) mmol/L Anion Gap 9 mmol/L BUN 15 (7-17) mg/dL Creatinine 0.91 (0.52-1.04) mg/dL Est GFR (CKD-EPI)AfAm 67 (>60 ml/min/1.73 sqM) Est GFR (CKD-EPI)NonAf 59 (>60 ml/min/1.73 sqM) Glucose 95 (74-99) mg/dL Calcium 9.5 (8.4-10.2) mg/dL Magnesium 2.1 (1.6-2.3) mg/dL Total Bilirubin 0.7 (0.2-1.3) mg/dL AST 19 (14-36) U/L ALT 19 (9-52) U/L Alkaline Phosphatase 63 (38-126) U/L Troponin I (0.000-0.034) ng/mL Total Protein 6.4 (6.3-8.2) g/dL Albumin 3.9 (3.5-5.0) g/dL TSH 1.300 (0.465-4.680) mIU/L Urine Color Urine Appearance (Clear) Urine pH (5.0-8.0) Ur Specific [place] (1.001-1.035) Urine Protein (Negative) Urine Glucose (UA) (Negative) Urine Ketones (Negative) Urine Blood (Negative) Urine Nitrite (Negative) Urine Bilirubin (Negative) Urine Urobilinogen (<2.0) mg/dL Ur Leukocyte Esterase (Negative) Urine RBC (0-5) /hpf Urine WBC (0-5) /hpf Ur Squamous Epith Cells (0-4) /hpf Urine Mucus (None) /hpf 04/25/19 04/25/19 Range/Units 17:33 17:33 WBC (3.8-10.6) k/uL RBC (3.80-5.40) m/uL Hgb (11.4-16.0) gm/dL Hct (34.0-46.0) % MCV (80.0-100.0) fL MCH (25.0-35.0) pg MCHC (31.0-37.0) g/dL RDW (11.5-15.5) % Plt Count (150-450) k/uL Neutrophils % % Lymphocytes % % Monocytes % % Eosinophils % % Basophils % % Neutrophils # (1.3-7.7) k/uL Lymphocytes # (1.0-4.8) k/uL Monocytes # (0-1.0) k/uL Eosinophils # (0-0.7) k/uL Basophils # (0-0.2) k/uL PT (9.0-12.0) sec INR (<1.2) APTT (22.0-30.0) sec Sodium (137-145) mmol/L Potassium (3.5-5.1) mmol/L Chloride (98-107) mmol/L Carbon Dioxide (22-30) mmol/L Anion Gap mmol/L BUN (7-17) mg/dL Creatinine (0.52-1.04) mg/dL Est GFR (CKD-EPI)AfAm (>60 ml/min/1.73 sqM) Est GFR (CKD-EPI)NonAf (>60 ml/min/1.73 sqM) Glucose (74-99) mg/dL Calcium (8.4-10.2) mg/dL Magnesium (1.6-2.3) mg/dL Total Bilirubin (0.2-1.3) mg/dL AST (14-36) U/L ALT (9-52) U/L Alkaline Phosphatase (38-126) U/L Troponin I <0.012 (0.000-0.034) ng/mL Total Protein (6.3-8.2) g/dL Albumin (3.5-5.0) g/dL TSH (0.465-4.680) mIU/L Urine Color Light Yellow Urine Appearance Clear (Clear) Urine pH 5.0 (5.0-8.0) Ur Specific [place] 1.008 (1.001-1.035) Urine Protein Negative (Negative) Urine Glucose (UA) Negative (Negative) Urine Ketones Trace H (Negative) Urine Blood Small H (Negative) Urine Nitrite Negative (Negative) Urine Bilirubin Negative (Negative) Urine Urobilinogen <2.0 (<2.0) mg/dL Ur Leukocyte Esterase Negative (Negative) Urine RBC 2 (0-5) /hpf Urine WBC 3 (0-5) /hpf Ur Squamous Epith Cells 1 (0-4) /hpf Urine Mucus Rare H (None) /hpf Disposition Clinical Impression: Tachycardia Disposition: HOME SELF-CARE Condition: Stable Instructions (If sedation given, give patient instructions): Heart Palpitations (ED) Additional Instructions: Please return to the Emergency Department if symptoms worsen or any other concerns. Is patient prescribed a controlled substance at d/c from ED?: No Referrals: Jena Logan MD [Primary Care Provider] - 1-2 days Time of Disposition: 20:12
[2019-04-25 19:04] LABS: INR 1.1 (<1.2); Partial Thromboplastin Time 24.8 sec (22.0-30.0); Prothrombin Time 11.2 sec (9.0-12.0)
[2019-04-25 19:05] LABS: Albumin 3.9 g/dL (3.5-5.0); Calcium 9.5 mg/dL (8.4-10.2); Magnesium 2.1 mg/dL (1.6-2.3); Potassium 4.2 mmol/L (3.5-5.1); Total Bilirubin 0.7 mg/dL (0.2-1.3); Total Protein 6.4 g/dL (6.3-8.2)
[2019-04-25 19:43] VITALS: BP 163/66; PULSE 72
== END 2019-04-25 20:29 | disposition home or self-care (01) ==
LOC: EC 15:57
DX: R00.0 Tachycardia, unspecified (principal); I48.91 Unspecified atrial fibrillation; Z91.030 Bee allergy status; Z91.048 Other nonmedicinal substance allergy status; Z79.01 Long term (current) use of anticoagulants; Z79.899 Other long term (current) drug therapy; Z95.818 Presence of other cardiac implants and grafts
CPT/HCPCS: 36415; 80053; 81001; 83735; 84443; 84484; 85025; 85610; 85730; 93005; 99285

== ENCOUNTER 2024-03-02 08:45 | Inpatient (IN) | payer MEDICARE, OTHER ==
--- NOTE | 2024-03-02 08:59 | ED ---
General Adult HPI - General Chief complaint: Arrhythmia/Palpitations Stated complaint: cardiac Time Seen by Provider: 03/02/24 08:50 Source: patient, family, EMS, RN notes reviewed, old records reviewed Mode of arrival: EMS Limitations: no limitations - History of Present Illness Initial comments: This is an 88-year-old female who is brought in by ambulance. Patient called her daughter last night and stated that she was feeling hot but the patient no rmally keeps her house at about 85 according to the daughter. Daughter states this morning she woke up and complained about being dizzy and sounded a little confused on the phone. Daughter states she also was vomiting and continued to complain about nausea. Patient was given 8 mg of Zofran in EMS and feeling much better. Patient denies ever having any chest pain or difficulty breathing or shortness of breath. However because the patient was dizzy and nauseated she thought she might be having a heart attack and that is why she originally called her daughter. Patient has no complaints currently. Patient [place] any recent fever chills or cough. Patient denies any abdominal pain. - Related Data Home Medications Medication Instructions Recorded Confirmed Apixaban [Eliquis] 2.5 mg PO BID 03/02/24 03/02/24 EPINEPHrine (Auto Inject) [Epipen] 0.3 mg IM ONCE PRN 03/02/24 03/02/24 Metoprolol Succinate (ER) [Toprol 25 mg PO BID 03/02/24 03/02/24 Xl] Allergies Allergy/AdvReac Type Severity Reaction Status Date / Time bee pollen Allergy Anaphylaxis Verified 03/02/24 11:19 cat dander Allergy Cough Verified 03/02/24 11:19 maple tree Allergy Cough Uncoded 03/02/24 11:19 Review of Systems ROS Statement: Those systems with pertinent positive or pertinent negative responses have been documented in the HPI. ROS Other: All systems not noted in ROS Statement are negative. Past Medical History Past Medical History: Hyperlipidemia, Osteoarthritis (OA) Additional Past Medical History / Comment(s): stage 3 Chronic kidney disease pt states it is asymptomatic and the is just watching it. new dx: A-fib April 11 History of Any Multi-Drug Resistant Organisms: None Reported Past Surgical History: Section, Heart Catheterization, Tonsillectomy Additional Past Surgical History / Comment(s): pt had eye tooth extraction on 04/06/17, wisdom, 2 ectopic pregnancies, left wrist. epidural injections march 21 Past Psychological History: Anxiety Past Alcohol Use History: Occasional Past Drug Use History: None Reported General Exam - General Exam Comments Initial Comments: GENERAL: Patient is well-developed and well-nourished. Patient is nontoxic and well- hydrated and is in mild distress. ENT: Neck is soft and supple. No significant lymphadenopathy is noted. Oropharynx is clear. Dry mucous membranes. Neck has full range of motion without eliciting any pain. EYES: The sclera were anicteric and conjunctiva were pink and moist. Extraocular movements were intact and pupils were equal round and reactive to light. Eyelids were unremarkable. PULMONARY: Unlabored respirations. Good breath sounds bilaterally. No audible rales r honchi or wheezing was noted. CARDIOVASCULAR: There is a regular rate and rhythm without any murmurs gallops or rubs. ABDOMEN: Soft and nontender with normal bowel sounds. SKIN: Skin is clear with no lesions or rashes and otherwise unremarkable. NEUROLOGIC: Patient is alert and oriented x3. Cranial nerves II through XII are grossly intact. Motor and sensory are also intact. Normal speech, volume and content. Symmetrical smile. MUSCULOSKELETAL: Normal extremities with adequate strength and full range of motion. LYMPHATICS: No significant lymphadenopathy is noted PSYCHIATRIC: Normal psychiatric evaluation. Limitations: no limitations Course Vital Signs 03/02/24 03/02/24 03/02/24 08:46 08:51 08:54 Temperature 97.9 F Pulse Rate 111 H Pulse Rate [ 116 H Research Director ] Respiratory 16 Rate Blood Pressure 167/117 172/98 O2 Sat by Pulse 96 Oximetry 03/02/24 03/02/24 10:09 10:36 Temperature Pulse Rate 113 H 138 H Pulse Rate [ Research Director ] Respiratory 16 16 Rate Blood Pressure 127/80 133/71 O2 Sat by Pulse 93 L 97 Oximetry Medical Decision Making - Medical Decision Making EKG is interpreted by myself. EKG shows atrial fibrillation with rapid ventricular response at 118 bpm QRS is 85 QT interval 311 QTc is 381. Patient's EKG shows no ST segment elevation or depression. Was pt. sent in by a medical professional or institution (, PA, GREASE REFINING SUPERVISOR, urgent care, hospital, or custodial...) When possible be specific @ -No Did you speak to anyone other than the patient for history (EMS, parent, family, police, friend...)? What history was obtained from this source @ -No Did you review nursing and triage notes (agree or disagree)? Why? @ -I reviewed and agree with nursing and triage notes Were old charts reviewed (outside hosp., previous admission, EMS record, old EKG, old radiological studies, urgent care reports/EKG's, custodial records)? Report findings @ -No old charts were reviewed Differential Diagnosis? @ -Differential Weakness: Hypoglycemia, shock, sepsis, hyponatremia, anemia, infection, TN, ETOH, adverse medicine reaction, overdose, stroke, this is not meant to be an all-inclusive list. EKG interpreted by me (3pts min.). @ -As above X-rays interpreted by me (1pt min.). @ -None done CT interpreted by me (1pt min.). @ -None done U/S interpreted by me (1pt. min.). @ -None done What testing was considered but not performed or refused? (CT, X-rays, U/S, labs)? Why? @ -None What meds were considered but not given or refused? Why? @ -None Did you discuss the management of the patient with other professionals (professionals i.e. , PA, GREASE REFINING SUPERVISOR, lab, RT, psych nurse, director social service, manager restaurant, teacher, risk officer, registered nurse hh case manager)? Give summary @ -I spoke with [facility], [facility] and they agreed to admit the patient. Spoke with Dr. Edward of nephrology and she agreed the patient could be admitted to the floor Was smoking cessation discussed for >3mins.? @ -No Was critical care preformed (if so, how long)? @ -No Were there social determinants of health that impacted care today? How? (Homelessness, low income, unemployed, alcoholism, drug addiction, transportation, low edu. Level, literacy, decrease access to med. care, long term, rehab)? @ -No Was there de-escalation of care discussed even if they declined (Discuss DNR or withdrawal of care, Hospice)? DNR status @ -No What co-morbidities impacted this encounter? (DM, HTN, Smoking, COPD, CAD, Cancer, CVA, ARF, Chemo, Hep., AIDS, mental health diagnosis, sleep apnea, morbid obesity)? @ -None Was patient admitted / discharged? Hospital course, mention meds given and route, prescriptions, significant lab abnormalities, going to OR and other pertinent info. @ -Patient's sodium was found to be 115. Patient did receive a liter of normal saline prior to getting those results. Patient will have repeat labs done prior to giving any more fluid. Patient will be [facility] to [facility] and a consult be placed to nephrology Undiagnosed new problem with uncertain prognosis? @ -No Drug Therapy requiring intensive monitoring for toxicity (Heparin, Nitro, Insulin, Cardizem)? @ -No Were any procedures done? @ -No Diagnosis/symptom? @ -Hyponatremia Acute, or Chronic, or Acute on Chronic? @ -Acute Uncomplicated (without systemic symptoms) or Complicated (systemic symptoms)? @ -Complicated Side effects of treatment? @ -No Exacerbation, Progression, or Severe Exacerbation? @ -No Poses a threat to life or bodily function? How? (Chest pain, [place], TN, pneumonia, PE, COPD, DKA, ARF, appy, cholecystitis, CVA, Diverticulitis, Homicidal, Suicidal, threat to staff... and all critical care pts) @ -Yes this can lead to significant weakness or cerebral edema with replacement of fluids Diagnosis/symptom? @ -Acute vomiting Acute, or Chronic, or Acute on Chronic? @ -Acute Uncomplicated (without systemic symptoms) or Complicated (systemic symptoms)? @ -Complicated Side effects of treatment? @ -None Exacerbation, Progression, or Severe Exacerbation] @ -No Poses a threat to life or bodily function? @ -No - Lab Data Result diagrams: 03/02/24 09:06 03/02/24 09:06 Lab Results 03/02/24 03/02/24 03/02/24 Range/Units 09:06 09:06 09:06 WBC 7.9 (3.8-10.6) k/uL RBC 3.68 L (3.80-5.40) m/uL Hgb 12.6 (11.4-16.0) gm/dL Hct 36.3 (34.0-46.0) % MCV 98.5 (80.0-100.0) fL MCH 34.1 (25.0-35.0) pg MCHC 34.7 (31.0-37.0) g/dL RDW 12.2 (11.5-15.5) % Plt Count 238 (150-450) k/uL MPV 8.0 Neutrophils % 88 % Lymphocytes % 6 % Monocytes % 4 % Eosinophils % 1 % Basophils % 0 % Neutrophils # 7.0 (1.3-7.7) k/uL Lymphocytes # 0.5 L (1.0-4.8) k/uL Monocytes # 0.3 (0-1.0) k/uL Eosinophils # 0.1 (0-0.7) k/uL Basophils # 0.0 (0-0.2) k/uL Sodium 115 L* (137-145) mmol/L Potassium 4.6 (3.5-5.1) mmol/L Chloride 86 L (98-107) mmol/L Carbon Dioxide 18 L (22-30) mmol/L Anion Gap 11 mmol/L BUN 11 (7-17) mg/dL Creatinine 0.69 (0.52-1.04) mg/dL Est GFR (CKD-EPI)AfAm >90 (>60 ml/min/1.73 sqM) Est GFR (CKD-EPI)NonAf 78 (>60 ml/min/1.73 sqM) Glucose 134 H (74-99) mg/dL Plasma Lactic Acid Tony (0.7-2.0) mmol/L Calcium 9.0 (8.4-10.2) mg/dL Total Bilirubin 2.1 H (0.2-1.3) mg/dL AST 26 (14-36) U/L ALT 12 (4-34) U/L Alkaline Phosphatase 81 (38-126) U/L Troponin I (0.000-0.034) ng/mL Total Protein 6.7 (6.3-8.2) g/dL Albumin 4.1 (3.5-5.0) g/dL Amylase 56 (30-110) U/L Lipase 87 (23-300) U/L Urine Color Colorless Urine Appearance Clear (Clear) Urine pH 5.5 (5.0-8.0) Ur Specific [place] 1.016 (1.001-1.035) Urine Protein Trace H (Negative) Urine Glucose (UA) 1+ H (Negative) Urine Ketones 2+ H (Negative) Urine Blood Moderate H (Negative) Urine Nitrite Negative (Negative) Urine Bilirubin Negative (Negative) Urine Urobilinogen <2.0 (<2.0) mg/dL Ur Leukocyte Esterase Moderate H (Negative) Urine RBC 25 H (0-5) /hpf Urine WBC 7 H (0-5) /hpf Ur Squamous Epith Cells 2 (0-4) /hpf Urine Bacteria Occasional H (None) /hpf Urine Mucus Rare H (None) /hpf 03/02/24 03/02/24 Range/Units 09:06 09:06 WBC (3.8-10.6) k/uL RBC (3.80-5.40) m/uL Hgb (11.4-16.0) gm/dL Hct (34.0-46.0) % MCV (80.0-100.0) fL MCH (25.0-35.0) pg MCHC (31.0-37.0) g/dL RDW (11.5-15.5) % Plt Count (150-450) k/uL MPV Neutrophils % % Lymphocytes % % Monocytes % % Eosinophils % % Basophils % % Neutrophils # (1.3-7.7) k/uL Lymphocytes # (1.0-4.8) k/uL Monocytes # (0-1.0) k/uL Eosinophils # (0-0.7) k/uL Basophils # (0-0.2) k/uL Sodium (137-145) mmol/L Potassium (3.5-5.1) mmol/L Chloride (98-107) mmol/L Carbon Dioxide (22-30) mmol/L Anion Gap mmol/L BUN (7-17) mg/dL Creatinine (0.52-1.04) mg/dL Est GFR (CKD-EPI)AfAm (>60 ml/min/1.73 sqM) Est GFR (CKD-EPI)NonAf (>60 ml/min/1.73 sqM) Glucose (74-99) mg/dL Plasma Lactic Acid Tony 1.5 (0.7-2.0) mmol/L Calcium (8.4-10.2) mg/dL Total Bilirubin (0.2-1.3) mg/dL AST (14-36) U/L ALT (4-34) U/L Alkaline Phosphatase (38-126) U/L Troponin I 0.016 (0.000-0.034) ng/mL Total Protein (6.3-8.2) g/dL Albumin (3.5-5.0) g/dL Amylase (30-110) U/L Lipase (23-300) U/L Urine Color Urine Appearance (Clear) Urine pH (5.0-8.0) Ur Specific [place] (1.001-1.035) Urine Protein (Negative) Urine Glucose (UA) (Negative) Urine Ketones (Negative) Urine Blood (Negative) Urine Nitrite (Negative) Urine Bilirubin (Negative) Urine Urobilinogen (<2.0) mg/dL Ur Leukocyte Esterase (Negative) Urine RBC (0-5) /hpf Urine WBC (0-5) /hpf Ur Squamous Epith Cells (0-4) /hpf Urine Bacteria (None) /hpf Urine Mucus (None) /hpf Critical Care Time Critical Care Time: Yes Total Critical Care Time: 35 Disposition Clinical Impression: Hyponatremia, Acute vomiting Disposition: ADMITTED IP TO THIS HOSP Referrals: Emir Polo MD [Primary Care Provider] - 1-2 days Time of Disposition: 11:31
[2024-03-02] MEDS: SODIUM CHLORIDE 0.9% 1,000 ML IV ONE (09:04)
[2024-03-02] MEDS: SODIUM CHLORIDE 0.9% 500 ML 500 ML IV ONE (09:04)
[2024-03-02] MEDS: LABETALOL 5 MG/ML VIAL MDV IVP STA (09:08)
[2024-03-02 09:19] LABS: Basophils % (A) 0 %; Eosinophils # (A) 0.1 k/uL (0-0.7); Eosinophils % (A) 1 %; HCT 36.3 % (34.0-46.0); HGB 12.6 gm/dL (11.4-16.0); Lymphocytes # (A) 0.5 k/uL (1.0-4.8); Lymphocytes % (A) 6 %; MCH 34.1 pg (25.0-35.0); MCHC 34.7 g/dL (31.0-37.0); MCV 98.5 fL (80.0-100.0); Monocytes # (A) 0.3 k/uL (0-1.0); Monocytes % (A) 4 %; Neutrophils % (A) 88 %; Platelet Count 238 k/uL (150-450); RBC 3.68 m/uL (3.80-5.40); RDW 12.2 % (11.5-15.5); WBC 7.9 k/uL (3.8-10.6)
[2024-03-02 09:49] LABS: ALT 12 U/L (4-34); AST 26 U/L (14-36); African American GFR (CKD) >90 (>60 ml/min/1.73 sqM); Albumin 4.1 g/dL (3.5-5.0); Alkaline Phosphatase 81 U/L (38-126); Amylase 56 U/L (30-110); Anion Gap 11 mmol/L; Blood Urea Nitrogen 11 mg/dL (7-17); Carbon Dioxide 18 mmol/L (22-30); Chloride 86 mmol/L (98-107); Glucose 134 mg/dL (74-99); Lipase 87 U/L (23-300); Non-African American GFR(CKD) 78 (>60 ml/min/1.73 sqM); Potassium 4.6 mmol/L (3.5-5.1); Total Bilirubin 2.1 mg/dL (0.2-1.3); Total Protein 6.7 g/dL (6.3-8.2)
[2024-03-02 09:55] LABS: Appearance,Urine Clear (Clear); Bacteria,Urine Occasional /hpf; Bilirubin,Urine Negative (Negative); Blood,Urine Moderate (Negative); Color,Urine Colorless; Glucose,Urine (UA) 1+ (Negative); Leukocyte Esterase,Urine Moderate (Negative); Mucus,Urine Rare /hpf; Nitrite,Urine Negative (Negative); PH, Urine 5.5 (5.0-8.0); Protein,Urine Trace (Negative); RBC,Urine 25 /hpf (0-5); Specific Gravity,Urine 1.016 (1.001-1.035); Squamous Epithelial Cell,Urine 2 /hpf (0-4); Urobilinogen,Urine <2.0 mg/dL (<2.0); WBC,Urine 7 /hpf (0-5)
[2024-03-02 10:02] LABS: Sodium 115 mmol/L (137-145)
[2024-03-02 10:12] LABS: Ketones,Urine 2+ (Negative)
[2024-03-02] MEDS: KETOROLAC 15 MG/ML 1 ML VIAL IVP STA (10:33)
[2024-03-02] MEDS: METOPROLOL TARTRATE 50 MG TAB PO STA (11:15)
--- NOTE | 2024-03-02 11:45 | P.HPIM ---
History of Present Illness H&P Date: 03/02/24 History of Presenting Illness: Patient is a very pleasant 88-year-old female with a past medical history of CAD, atrial fibrillation on anticoagulation with Eliquis, and stage III chronic kidney disease. She presented to the hospital this morning with a chief complaint of dizziness, nausea, vomiting, and diarrhea. Patient's daughter at bedside reports that she believes everything started yesterday morning when her mother waited in a hot garage for 45 minutes for a ride to the doctors. Patient's daughter reports she had some car trouble and her mom was already out in the garage waiting for her to pick her up and she was unable to get a hold of her to get her to come back into the house to wait. Patient states she felt fine at that time but later that afternoon began having diarrhea and episodes of persistent nausea and vomiting that continued throughout the night. Patient reports this morning vomiting worsened and she felt her heart racing, became very warm and flushed feeling and was concerned she was going to have a heart attack so she called her daughter whom in turn called EMS. Pt was given zofran by EMS and since reports feeling much better. Pt reports nausea and vomiting have subsided and so has her dizziness and her warm/flushed feeling has also subsided. She currently reports feeling palpitations, but denies CP or shortness of breath. Pt states that she did not take her medication (Metoprolol) this morning and is sure she vomited it up last night. She denies having any fevers, chills, diaphoresis, chest pain, shortness of breath, cough or congestion, or experiencing any numbness/tingling/weakness in her extremities. She does report experiencing lower extremity cramping/charley horse pains. Upon arrival to our facility, patient underwent evaluation in the emergency department. Vital signs upon arrival show blood pressure 167/117, heart rate 111, respiratory rate 16, temp 97.9 F, and SpO2 of 96% on room air. EKG completed showing atrial fibrillation with RVR at 118 bpm. Labs completed and reviewed. CBC was unremarkable with WBC count of 7.9, hemoglobin of 12.6 and platelet count of 238,000. BMP showing metabolic alkalosis with severe hyponatremia with sodium of 115, hypochloremia with chloride of 86, bicarb of 18, and anion gap of 11. Renal function was unremarkable with BUN of 11, creatinine of 0.69, and GFR of 78. Glucose was 134. Lactic acid 1.5. Liver profile showing elevated total bili of 2.1. Troponin 0.016. Patient admitted under our services with consultations to nephrology and cardiology. Review of systems: Pertinent positives and negatives as discussed in HPI, a complete review of systems was performed and all other systems are negative. Physical exam: Vital signs reviewed and stable. General: Nontoxic and appears stated age. Derm: Skin warm and dry, normal coloration for ethnicity. Head: Atraumatic, normocephalic and symmetric. Eyes: EOMs intact, no lid lag, and anicteric sclera Mouth: no lip lesions, mucus membranes dry, poor dentition Cardiovascular: Irregularly irregular, positive posterior tibial pulses bilaterally, and cap refill < 2 seconds. Lungs: Respirations even, regular, and unlabored on room air. Lungs CTA bilaterally, no rhonchi, no rales, no wheezing, and no accessory muscle usage. Abdominal: soft, nontender to palpation, no guarding, no appreciable organomegaly Ext: ROM intact. No gross muscle atrophy, no edema, no contractures Neuro: Speech clear, face symmetrical and CN II-XII grossly intact with no noted focal neuro deficits Psych: Alert and oriented to person, place, time, and situation. Appropriate and pleasant affect. Assessment and Plan of Care: Severe Hypochloremic Hyponatremia, suspect acute secondary to dehydration Metabolic alkalosis, secondary to dehydration from N/V/D Intractable nausea, vomiting, and diarrhea Hyperbilirubinemia, believed to be reactive secondary to intractable nausea, vomiting and diarrhea -Patient received 1.5 L bolus of 0.9% normal saline in the emergency department, will hold off on additional fluids pending repeat sodium results. -Nephrology consulted and discussed case with Dr. Edward -Order placed for stat repeat sodium level followed by BMP every 6 hours. -Seizure precautions, fall precautions, and neurochecks placed. -Patient to remain on continuous telemetry monitoring -Order placed for influenza A, influenza B, and COVID PCR's to be completed. -Patient denies abdominal pain/discomfort, will hold off on imaging -Orders placed for TSH with reflex free T4, serum osmolality, uric acid, urine sodium, and urine osmolality -Compazine 10 mg IVP every 6 hours as needed for nausea or vomiting. Atrial fibrillation with RVR -Patient with history of atrial fibrillation and reports missing dose of medication/unable to keep down due to intractable vomiting. -Patient received labetalol 20 mg IVP in the emergency department and will give her a one-time dose of Metroprolol 50 mg p.o. Now and resume home home dose of 25 mg twice daily beginning tonight. -Patient to continue Eliquis 5 mg twice daily and metoprolol 25 mg twice daily. -Telemetry monitoring. -Order placed for cardiology consult, appreciate recommendations. Stage IIIa chronic kidney disease -Renal function stable at this time. Data and imaging reviewed: -As stated above in HPI The patient is admitted with an anticipated greater than 2 midnight stay for evaluation of severe hypochloremic hyponatremia CODE STATUS: Full Code DVT prophylaxis: Eliquis Discussed with: ER provider, hand binder stripper, patient, patient's daughter at [facility], and RN Anticipated discharge date: Pending clinical course Anticipated discharge place: Pending clinical course Patient was seen independently by Nurse Practitioner. This document was prepared using [employer] dictation software. Please allow for errors in human resource officer while rare they do occur. Michael Alexandre NP rendered care for this patient independently, reviewed the findi ngs and plan as documented in the note above. I did not physically speak with or examine the patient on this date Past Medical History Past Medical History: Hyperlipidemia, Osteoarthritis (OA) Additional Past Medical History / Comment(s): stage 3 Chronic kidney disease pt states it is asymptomatic and the is just watching it. new dx: A-fib April 11 History of Any Multi-Drug Resistant Organisms: None Reported Past Surgical History: Section, Heart Catheterization, Tonsillectomy Additional Past Surgical History / Comment(s): pt had eye tooth extraction on 04/06/17, wisdom, 2 ectopic pregnancies, left wrist. epidural injections march 21 Past Psychological History: Anxiety Past Alcohol Use History: Occasional Past Drug Use History: None Reported Medications and Allergies Home Medications Medication Instructions Recorded Confirmed Type Apixaban [Eliquis] 2.5 mg PO BID 03/02/24 03/02/24 History EPINEPHrine (Auto Inject) [Epipen] 0.3 mg IM ONCE PRN 03/02/24 03/02/24 History Metoprolol Succinate (ER) [Toprol 25 mg PO BID 03/02/24 03/02/24 History Xl] Allergies Allergy/AdvReac Type Severity Reaction Status Date / Time bee pollen Allergy Anaphylaxis Verified 03/02/24 11:19 cat dander Allergy Cough Verified 03/02/24 11:19 maple tree Allergy Cough Uncoded 03/02/24 11:19 Physical Exam Vitals: Vital Signs Temp Pulse Pulse Resp BP Pulse Ox 03/02/24 10:36 138 H 16 133/71 97 03/02/24 10:09 113 H 16 127/80 93 L 03/02/24 08:54 172/98 03/02/24 08:51 116 H 03/02/24 08:46 97.9 F 111 H 16 167/117 96 Intake and Output 03/01/24 03/02/24 03/02/24 22:59 06:59 14:59 Other: Weight 63.503 kg Results CBC & Chem 7: 03/02/24 09:06 03/02/24 11:13 Labs: Abnormal Lab Results - Last 24 Hours (Table) 03/02/24 03/02/24 03/02/24 Range/Units 09:06 09:06 09:06 RBC 3.68 L (3.80-5.40) m/uL Lymphocytes # 0.5 L (1.0-4.8) k/uL Sodium 115 L* (137-145) mmol/L Chloride 86 L (98-107) mmol/L Carbon Dioxide 18 L (22-30) mmol/L Glucose 134 H (74-99) mg/dL Total Bilirubin 2.1 H (0.2-1.3) mg/dL Urine Protein Trace H (Negative) Urine Glucose (UA) 1+ H (Negative) Urine Ketones 2+ H (Negative) Urine Blood Moderate H (Negative) Ur Leukocyte Esterase Moderate H (Negative) Urine RBC 25 H (0-5) /hpf Urine WBC 7 H (0-5) /hpf Urine Bacteria Occasional H (None) /hpf Urine Mucus Rare H (None) /hpf
[2024-03-02 12:06] LABS: ALT 11 U/L (4-34); AST 20 U/L (14-36); African American GFR (CKD) >90 (>60 ml/min/1.73 sqM); Albumin 3.6 g/dL (3.5-5.0); Alkaline Phosphatase 67 U/L (38-126); Anion Gap 9 mmol/L; Blood Urea Nitrogen 10 mg/dL (7-17); Calcium 8.4 mg/dL (8.4-10.2); Carbon Dioxide 18 mmol/L (22-30); Chloride 91 mmol/L (98-107); Glucose 124 mg/dL (74-99); Non-African American GFR(CKD) 81 (>60 ml/min/1.73 sqM); Potassium 4.4 mmol/L (3.5-5.1); Total Bilirubin 1.9 mg/dL (0.2-1.3); Total Protein 5.9 g/dL (6.3-8.2); Uric Acid 2.9 mg/dL (3.7-7.4)
[2024-03-02 12:09] LABS: Sodium 118 mmol/L (137-145)
--- NOTE | 2024-03-02 12:19 | XR ---
EXAMINATION TYPE: XR chest 2V DATE OF EXAM: 03/02/2024 COMPARISON: 04/14/18 HISTORY: Shortness of breath TECHNIQUE: Frontal and lateral views of the chest are obtained. FINDINGS: Scattered senescent parenchymal changes noted. Hyperinflation compatible with COPD. No evidence for infiltrate. No evidence for atelectasis. Heart size is stable. Mediastinal structures are stable and grossly unremarkable. No evidence for hilar prominence. Degenerative changes dorsal spine. IMPRESSION: 1. No evidence for acute pulmonary disease.
--- NOTE | 2024-03-02 16:13 | P.NPCON ---
History of Present Illness - Reason for Consult hyponatremia - History of Present Illness Patient is an 88-year-old female with history of A-fib who was admitted to the hospital with history of weakness. Daughter believes that there have been some mental status changes as well recently. It appears that patient called her daughter saying that she thought she was having a heart attack. There is history of nausea and vomiting for about 1 day. There is no history of fever or chills. It appears that patient has not been eating much for about a month now. No previous history of hyponatremia. No new medications started recently. Serum sodium was 115 on admission. Patient received a normal saline bolus and serum sodium increased to 118 about 2 hours later. Blood pressure was not low on admission. Currently off of IV fluids and feeling slightly better. Urine sodium and urine osmolality is ordered and pending. Review of Systems As per HPI Past Medical History Past Medical History: Hyperlipidemia, Osteoarthritis (OA) Additional Past Medical History / Comment(s): stage 3 Chronic kidney disease pt states it is asymptomatic and the DrLeif is just watching it. new dx: A-fib April 11 History of Any Multi-Drug Resistant Organisms: None Reported Past Surgical History: Section, Heart Catheterization, Tonsillectomy Additional Past Surgical History / Comment(s): pt had eye tooth extraction on 04/06/17, wisdom, 2 ectopic pregnancies, left wrist. epidural injections march 21 Past Psychological History: Anxiety Past Alcohol Use History: Occasional Past Drug Use History: None Reported Medications and Allergies Home Medications Medication Instructions Recorded Confirmed Type Apixaban [Eliquis] 2.5 mg PO BID 03/02/24 03/02/24 History EPINEPHrine (Auto Inject) [Epipen] 0.3 mg IM ONCE PRN 03/02/24 03/02/24 History Metoprolol Succinate (ER) [Toprol 25 mg PO BID 03/02/24 03/02/24 History Xl] Allergies Allergy/AdvReac Type Severity Reaction Status Date / Time bee pollen Allergy Anaphylaxis Verified 03/02/24 11:19 cat dander Allergy Cough Verified 03/02/24 11:19 maple tree Allergy Cough Uncoded 03/02/24 11:19 Physical Exam Vitals: Vital Signs Temp Pulse Pulse Resp BP Pulse Ox 03/02/24 15:45 98 18 148/104 96 03/02/24 14:56 103 H 16 124/71 96 03/02/24 14:00 93 16 121/85 96 03/02/24 12:49 93 16 115/74 93 L 03/02/24 10:36 138 H 16 133/71 97 03/02/24 10:09 113 H 16 127/80 93 L 03/02/24 08:54 172/98 03/02/24 08:51 116 H 03/02/24 08:46 97.9 F 111 H 16 167/117 96 Intake and Output 03/02/24 03/02/24 03/02/24 06:59 14:59 22:59 Other: Weight 63.503 kg Patient is awake, comfortable, no acute distress. Examination of the heart S1 and S2 Examination of the lungs bilateral breath sounds are heard Abdomen is soft nontender Examination of lower extremities shows no significant edema [employer] REPAIR TECHNICIAN exam grossly intact Results - Lab Results Most recent lab results Calcium 8.4 mg/dL (8.4-10.2) 03/02/24 11:13 Magnesium 1.3 mg/dL (1.6-2.3) L 03/02/24 11:13 03/02/24 09:06 03/02/24 11:13 Assessment and Plan Assessment: 1. Hyponatremia, hypovolemic and improved with normal saline. Urine osmolality and urine sodium is pending. Repeat sodium level will be ordered. TSH is not elevated. 2. Chronic A-fib maintained on Eliquis for anticoagulation. 3. Nongap metabolic acidosis secondary to diarrhea. Plan: Repeat sodium now and based on the repeat sodium further fluids will be ordered. Follow-up on random urine sodium and urine osmolality. Patient is advised to maintain adequate oral intake and try to increase protein in diet. Thank you for the consultation. We will continue to follow the patient with you during her hospitalization. Time with Patient: Greater than 30
[2024-03-02] MEDS: HYDROcodone/APAP 5-325MG 1 EACH TAB PO PRN (18:40)
[2024-03-02] MEDS: METOPROLOL SUCCINATE (ER) 25 MG TAB.ER.24H PO SCH (19:46)
[2024-03-02] MEDS: APIXABAN 2.5 MG TABLET PO SCH (20:08)
[2024-03-02] MEDS: SODIUM CHLORIDE 0.9% 1,000 ML IV SCH (20:11)
[2024-03-02] MEDS: METOPROLOL TARTRATE 25 MG TAB PO STA (21:00)
[2024-03-03 01:29] LABS: ALT 9 U/L (4-34); AST 21 U/L (14-36); African American GFR (CKD) 72 (>60 ml/min/1.73 sqM); Albumin 3.4 g/dL (3.5-5.0); Alkaline Phosphatase 65 U/L (38-126); Anion Gap 8 mmol/L; Blood Urea Nitrogen 13 mg/dL (7-17); Calcium 8.6 mg/dL (8.4-10.2); Carbon Dioxide 18 mmol/L (22-30); Chloride 90 mmol/L (98-107); Glucose 102 mg/dL (74-99); Non-African American GFR(CKD) 62 (>60 ml/min/1.73 sqM); Potassium 4.5 mmol/L (3.5-5.1); Total Bilirubin 1.9 mg/dL (0.2-1.3); Total Protein 5.6 g/dL (6.3-8.2)
[2024-03-03 01:39] LABS: Sodium 116 mmol/L (137-145)
[2024-03-03] MEDS: MORPHINE SULFATE 4 MG/ML SYRINGE IV PRN (05:48)
[2024-03-03 08:17] LABS: HCT 30.9 % (34.0-46.0); HGB 10.3 gm/dL (11.4-16.0); MCH 33.8 pg (25.0-35.0); MCHC 33.3 g/dL (31.0-37.0); MCV 101.5 fL (80.0-100.0); Mean Platelet Volume 7.3; Platelet Count 205 k/uL (150-450); RBC 3.04 m/uL (3.80-5.40); RDW 12.1 % (11.5-15.5); WBC 7.9 k/uL (3.8-10.6)
[2024-03-03 08:31] LABS: ALT 9 U/L (4-34); AST 22 U/L (14-36); African American GFR (CKD) 87 (>60 ml/min/1.73 sqM); Albumin 3.2 g/dL (3.5-5.0); Alkaline Phosphatase 60 U/L (38-126); Anion Gap 4 mmol/L; Blood Urea Nitrogen 11 mg/dL (7-17); Calcium 8.5 mg/dL (8.4-10.2); Carbon Dioxide 19 mmol/L (22-30); Chloride 94 mmol/L (98-107); Glucose 99 mg/dL (74-99); Magnesium 1.5 mg/dL (1.6-2.3); Non-African American GFR(CKD) 76 (>60 ml/min/1.73 sqM); Potassium 4.3 mmol/L (3.5-5.1); Total Bilirubin 1.8 mg/dL (0.2-1.3); Total Protein 5.6 g/dL (6.3-8.2)
[2024-03-03 09:09] LABS: Sodium 117 mmol/L (137-145)
[2024-03-03] MEDS: MAGNESIUM SULFATE-D5W PMX 1 GM in DEXTROSE/WATER 1 100ML.BAG IVPB SCH (09:50)
[2024-03-03] MEDS: ACETAMINOPHEN TAB 325 MG TAB PO PRN (09:57)
--- NOTE | 2024-03-03 09:57 | P.CRDCN ---
History of Present Illness Consult date: 03/03/24 History of present illness: HISTORY OF PRESENTING ILLNESS 88-year-old female with past medical history of persistent atrial fibrillation managed on Eliquis and metoprolol. She is known to Dr. Jacobs. He presents to the hospital because of complaints of nausea, dizziness vomiting. Everything started yesterday morning while patient was waiting in the garage for 45 minutes for a ride to the doctor's appointment. On admission it was noted that she had electrolyte imbalance with hyponatremia, BUN 11, creatinine 0.6, lactate 1.5, troponin is 0.016. REVIEW OF SYSTEMS 14 point review of system is negative except what is mentioned above in HPI. PHYSICAL EXAMINATION Vital signs reviewed. Head: Normocephalic. Eyes: Sclerae nonicteric. Neck: Brisk carotid upstroke, no jugular venous distention. Lungs: Clear to auscultation. Heart: Irregularly irregular, S1-S2, no S3, no murmur or rub. Abdomen: Soft nontender, positive bowel sounds. Extremities: Chronic 1+ edema which is nonpitting in bilateral lower extremity, intact distal pulses. Neuro: Alert, oritented, no focal deficits. Detailed neuro exam was not performed. ASSESSMENT Atrial fibrillation with RVR, currently rate controlled, persistent atrial fibrillation Hyponatremia Nausea and diarrhea Generalized weakness PLAN Obtain echocardiogram Obtain NT-proBNP levels Continue metoprolol 25 mg twice daily and Eliquis 2.5 mg twice daily Would appreciate nephrology recommendations. At this time patient does not want any aggressive cardiac workup. I offered her GOVIND cardioversion and patient is not interested in cardioversion procedure at this time. Iron Dickens MD, FACC, RPVI Thank you for allowing [facility] to participate in this patient's care. Feel free to reach out in case of any followup questions. Past Medical History Past Medical History: Hyperlipidemia, Osteoarthritis (OA) Additional Past Medical History / Comment(s): stage 3 Chronic kidney disease pt states it is asymptomatic and the is just watching it. new dx: A-fib April 11 History of Any Multi-Drug Resistant Organisms: None Reported Past Surgical History: Section, Heart Catheterization, Tonsillectomy Additional Past Surgical History / Comment(s): pt had eye tooth extraction on 04/06/17, wisdom, 2 ectopic pregnancies, left wrist. epidural injections march 21 Past Anesthesia/Blood Transfusion Reactions: No Reported Reaction Past Psychological History: Anxiety Past Alcohol Use History: Occasional Past Drug Use History: None Reported Medications and Allergies Home Medications Medication Instructions Recorded Confirmed Type Apixaban [Eliquis] 2.5 mg PO BID 03/02/24 03/02/24 History EPINEPHrine (Auto Inject) [Epipen] 0.3 mg IM ONCE PRN 03/02/24 03/02/24 History Metoprolol Succinate (ER) [Toprol 25 mg PO BID 03/02/24 03/02/24 History Xl] Allergies Allergy/AdvReac Type Severity Reaction Status Date / Time bee pollen Allergy Anaphylaxis Verified 03/02/24 11:19 cat dander Allergy Cough Verified 03/02/24 11:19 maple tree Allergy Cough Uncoded 03/02/24 11:19 Physical Exam Vitals: Vital Signs Temp Pulse Pulse Resp BP BP Pulse Ox 03/03/24 07:54 99 20 03/03/24 07:53 97.7 F 99 20 145/83 96 03/03/24 03:59 97.7 F 98 20 149/84 96 03/03/24 01:26 106 H 20 03/02/24 23:23 98.3 F 106 H 20 146/83 96 03/02/24 22:24 98.3 F 108 H 18 146/88 94 L 03/02/24 22:10 98.3 F 108 H 18 146/88 94 L 03/02/24 20:45 108 H 22 151/78 94 L 03/02/24 19:30 108 H 20 143/90 94 L 03/02/24 18:38 100 16 142/101 96 03/02/24 17:37 98.9 F 98 18 135/83 95 03/02/24 16:00 111 H 18 144/70 94 L 03/02/24 15:45 98 18 148/104 96 03/02/24 14:56 103 H 16 124/71 96 03/02/24 14:00 93 16 121/85 96 03/02/24 12:49 93 16 115/74 93 L 03/02/24 10:36 138 H 16 133/71 97 03/02/24 10:09 113 H 16 127/80 93 L Intake and Output 03/02/24 03/03/24 03/03/24 22:59 06:59 14:59 Output Total 0 Balance 0 Output: Urine 0 Other: Voiding Method External Catheter External Catheter External Catheter Weight 56.5 kg Results 03/03/24 07:30 03/03/24 07:30 Cardiac Enzymes 03/02/24 03/02/24 03/02/24 Range/Units 09:06 09:06 11:13 AST 26 20 (14-36) U/L Troponin I 0.016 (0.000-0.034) ng/mL 03/02/24 03/02/24 03/03/24 Range/Units 11:13 16:47 00:29 AST 21 (14-36) U/L Troponin I 0.019 0.028 (0.000-0.034) ng/mL 03/03/24 Range/Units 07:30 AST 22 (14-36) U/L Troponin I (0.000-0.034) ng/mL CBC 03/03/24 Range/Units 07:30 WBC 7.9 (3.8-10.6) k/uL RBC 3.04 L (3.80-5.40) m/uL Hgb 10.3 L (11.4-16.0) gm/dL Hct 30.9 L (34.0-46.0) % Plt Count 205 (150-450) k/uL Comprehensive Metabolic Panel 03/02/24 03/02/24 03/02/24 Range/Units 09:06 11:13 16:47 Sodium 115 L* 118 L* 117 L* (137-145) mmol/L Potassium 4.6 4.4 (3.5-5.1) mmol/L Chloride 86 L 91 L (98-107) mmol/L Carbon Dioxide 18 L 18 L (22-30) mmol/L BUN 11 10 (7-17) mg/dL Creatinine 0.69 0.62 (0.52-1.04) mg/dL Glucose 134 H 124 H (74-99) mg/dL Calcium 9.0 8.4 (8.4-10.2) mg/dL AST 26 20 (14-36) U/L ALT 12 11 (4-34) U/L Alkaline Phosphatase 81 67 (38-126) U/L Total Protein 6.7 5.9 L (6.3-8.2) g/dL Albumin 4.1 3.6 (3.5-5.0) g/dL 03/03/24 03/03/24 Range/Units 00:29 07:30 Sodium 116 L* 117 L* (137-145) mmol/L Potassium 4.5 4.3 (3.5-5.1) mmol/L Chloride 90 L 94 L (98-107) mmol/L Carbon Dioxide 18 L 19 L (22-30) mmol/L BUN 13 11 (7-17) mg/dL Creatinine 0.84 0.72 (0.52-1.04) mg/dL Glucose 102 H 99 (74-99) mg/dL Calcium 8.6 8.5 (8.4-10.2) mg/dL AST 21 22 (14-36) U/L ALT 9 9 (4-34) U/L Alkaline Phosphatase 65 60 (38-126) U/L Total Protein 5.6 L 5.6 L (6.3-8.2) g/dL Albumin 3.4 L 3.2 L (3.5-5.0) g/dL Current Medications Generic Name Dose Route Start Last Admin Trade Name Freq PRN Reason Stop Dose Admin Acetaminophen 650 mg 03/02/24 15:55 Acetaminophen Tab 325 Mg Tab PO Q6HR PRN Mild Pain or Fever > 100.5 Hydrocodone Bitart/Acetaminophen 1 each 03/02/24 15:55 03/02/24 18:40 Hydrocodone/Apap 5-325mg 1 Each Tab PO 1 each Q4HR PRN Administration Moderate Pain (Scale 4 to 6) Apixaban 2.5 mg 03/02/24 21:00 03/03/24 07:57 Apixaban 2.5 Mg Tablet PO 2.5 mg BID JENELEL Administration Protocol Sodium Chloride 1,000 mls @ 75 mls/hr 03/02/24 20:00 03/03/24 07:58 Saline 0.9% IV 75 mls/hr .[id number] JENELLE Administration Magnesium Sulfate/Dextrose 1 100 mls @ 100 mls/hr 03/03/24 09:30 03/03/24 09:50 gm/ IV Solution IVPB 03/03/24 13:29 100 mls/hr Q1H JENELLE Administration Metoprolol Succinate 25 mg 03/02/24 21:00 03/03/24 07:57 Metoprolol Succinate (Er) 25 Mg Tab.Er.24h PO 25 mg BID JENELLE Administration Morphine Sulfate 2 mg 03/02/24 15:55 03/03/24 05:48 Morphine Sulfate 4 Mg/Ml Syringe IV 2 mg Q4HR PRN Administration Severe Pain (Scale 7 to 10) Prochlorperazine Edisylate 10 mg 03/02/24 11:17 Prochlorperazine Inj 10 Mg/2 Ml Vial IVP Q6H PRN Nausea Intake and Output 03/02/24 03/03/24 03/03/24 22:59 06:59 14:59 Output Total 0 Balance 0 Output: Urine 0 Other: Voiding Method External Catheter External Catheter External Catheter Weight 56.5 kg 03/03/24 07:30 03/03/24 07:30
[2024-03-03] MEDS: FUROSEMIDE 10 MG/ML 4 ML VIAL IV STA (10:45)
--- NOTE | 2024-03-03 11:47 | P.PN ---
Subjective patient is seen for follow-up for hyponatremia. Serum sodium improved initially with normal saline and has since then been at 116-117 with no further improvement. Urine osmolality is elevated at 550 with random urine sodium of 94. 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 Poor oral intake. No nausea or vomiting noted. Blood pressure is not low. Objective - Vital Signs Vital signs: Vital Signs Temp 97.7 F 03/03/24 07:53 Pulse 99 03/03/24 07:54 Resp 20 03/03/24 07:54 BP 145/83 03/03/24 07:53 Pulse Ox 96 03/03/24 07:53 FiO2 Intake & Output 03/02/24 03/03/24 03/03/24 18:59 06:59 18:59 Output Total 0 0 Balance 0 0 Weight 63.503 kg 56.5 kg Output: Urine 0 0 Other: Voiding Method External Catheter External Catheter - Exam Patient is awake, comfortable, no acute distress. Examination of the heart S1 and S2 Examination of the lungs bilateral breath sounds are heard Abdomen is soft nontender Examination of lower extremities shows no significant edema HAND POLISHER exam grossly intact - Labs CBC & Chem 7: 03/03/24 07:30 03/03/24 07:30 Labs: Abnormal Lab Results - Last 24 Hours (Table) 03/02/24 03/02/24 03/02/24 Range/Units 11:13 11:13 16:47 RBC (3.80-5.40) m/uL Hgb (11.4-16.0) gm/dL Hct (34.0-46.0) % MCV (80.0-100.0) fL Sodium 118 L* 117 L* (137-145) mmol/L Chloride 91 L (98-107) mmol/L Carbon Dioxide 18 L (22-30) mmol/L Glucose 124 H (74-99) mg/dL Osmolality 253 L (275-295) mOsm/kg Uric Acid 2.9 L (3.7-7.4) mg/dL Magnesium 1.3 L (1.6-2.3) mg/dL Total Bilirubin 1.9 H (0.2-1.3) mg/dL Total Protein 5.9 L (6.3-8.2) g/dL Albumin (3.5-5.0) g/dL 03/03/24 03/03/24 03/03/24 Range/Units 00:29 07:30 07:30 RBC 3.04 L (3.80-5.40) m/uL Hgb 10.3 L (11.4-16.0) gm/dL Hct 30.9 L (34.0-46.0) % MCV 101.5 H (80.0-100.0) fL Sodium 116 L* 117 L* (137-145) mmol/L Chloride 90 L 94 L (98-107) mmol/L Carbon Dioxide 18 L 19 L (22-30) mmol/L Glucose 102 H (74-99) mg/dL Osmolality (275-295) mOsm/kg Uric Acid (3.7-7.4) mg/dL Magnesium 1.5 L (1.6-2.3) mg/dL Total Bilirubin 1.9 H 1.8 H (0.2-1.3) mg/dL Total Protein 5.6 L 5.6 L (6.3-8.2) g/dL Albumin 3.4 L 3.2 L (3.5-5.0) g/dL Assessment and Plan Assessment: 1. Hyponatremia, hypovolemic initially with improvement in serum sodium with normal saline. Serum sodium has not improved further after hypovolemic compo nent was corrected. urine osmolality at 550 and random urine sodium of 94. 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 2. Chronic A-fib maintained on Eliquis for anticoagulation. 3. Nongap metabolic acidosis secondary to diarrhea. 4. A. fib with RVR with controlled ventricular response Plan: Continue with normal saline and add IV Lasix to help with free water excretion. If serum sodium does not improve further she will receive Samsca. She is also encouraged to increase oral intake particularly protein. Controlled pain
[2024-03-03 11:56] LABS: NT-Pro-B-Type Natriuretic Pept 7660 pg/mL
[2024-03-03 12:43] VITALS: BMI 24.3
--- NOTE | 2024-03-03 14:29 | P.PN ---
Subjective Progress Note Date: 03/03/24 Hospital Course: Patient is a very pleasant 88-year-old female with a past medical history of CAD, atrial fibrillation on anticoagulation with Eliquis, and stage III chronic kidney disease. She presented to the hospital 03/02/2024 with a chief complaint of dizziness, nausea, vomiting, and diarrhea starting shortly after concerns of being outside in the heat for an extended period of time on 03/01/2024. Upon arrival to our facility, patient underwent evaluation in the emergency department. Vital signs upon arrival show blood pressure 167/117, heart rate 111, respiratory rate 16, temp 97.9 F, and SpO2 of 96% on room air. EKG completed showing atrial fibrillation with RVR at 118 bpm. Labs completed and reviewed. CBC was unremarkable with WBC count of 7.9, hemoglobin of 12.6 and platelet count of 238,000. BMP showing metabolic alkalosis with severe hy ponatremia with sodium of 115, hypochloremia with chloride of 86, bicarb of 18, and anion gap of 11. Renal function was unremarkable with BUN of 11, creatinine of 0.69, and GFR of 78. Glucose was 134. Lactic acid 1.5. Liver profile showing elevated total bili of 2.1. Troponin 0.016. Patient admitted under our services with consultations to nephrology and cardiology. Physical exam: Vital signs reviewed and stable. General: Nontoxic and appears stated age. Derm: Skin warm and dry, normal coloration for ethnicity. Head: Atraumatic, normocephalic and symmetric. Eyes: EOMs intact, no lid lag, and anicteric sclera Mouth: no lip lesions, mucus membranes dry, poor dentition Cardiovascular: Irregularly irregular, positive posterior tibial pulses bilaterally, and cap refill < 2 seconds. Lungs: Respirations even, regular, and unlabored on room air. Lungs CTA bilaterally, no rhonchi, no rales, no wheezing, and no accessory muscle usage. Abdominal: soft, nontender to palpation, no guarding, no appreciable organomegaly Ext: ROM intact. No gross muscle atrophy, no edema, no contractures Neuro: Speech clear, face symmetrical and CN II-XII grossly intact with no noted focal neuro deficits Psych: Alert and oriented to person, place, time, and situation. Appropriate and pleasant affect. Assessment and Plan of Care: Severe Hypochloremic Hyponatremia, suspect acute secondary to dehydration Metabolic alkalosis, secondary to dehydration from N/V/D Intractable nausea, vomiting, and diarrhea Hypomagnesemia Hyperbilirubinemia, believed to be reactive secondary to intractable nausea, vomiting and diarrhea -Continue gentle IV fluid hydration with 0.9% normal saline at 75 cc/h as recommended by manager financial systems -Nephrology following and discussed case with Dr. Edward, recommending continuation of gentle IV fluid hydration with 0.9% normal saline at 75 cc/h. -Continued close monitoring of sodium levels with repeat BMP every 6 hours. -Seizure precautions, fall precautions, and neurochecks placed. -Patient to remain on continuous telemetry monitoring -TSH normal findings at 1.310. Urine osmolality 550, random urine sodium of 94. Serum osmolality was low at 253 with uric acid of 2.9. -Compazine 10 mg IVP every 6 hours as needed for nausea or vomiting. Atrial fibrillation with RVR -Patient to continue Eliquis 2.5 mg twice daily and metoprolol 25 mg twice daily. -Cardiology following and discussed plan of care with Dr. Dickens, recommending repeating echocardiogram. -Telemetry monitoring. Stage IIIa chronic kidney disease -Renal function stable at this time. Data and imaging reviewed: -Sodium levels trended throughout the night resulting at 115, 118, 117, 116, and 117. -Morning labs showing CBC with macrocytic anemia with hemoglobin of 10.3. BMP showing persistent hyponatremia with sodium of 117 and hypochloremic metabolic acidosis with chloride of 94, bicarb of 19, and anion gap of 4. Blood glucose 99. Magnesium was low at 1.5. proBNP was 7660 and albumin is 3.2. -Blood pressure 145/83, heart rate 99, respiratory rate 20, temp 97.7 F, and SpO2 of 96% on room air. CODE STATUS: Full Code DVT prophylaxis: Eliquis Anticipated discharge date: Pending clinical course Anticipated discharge place: Pending clinical course Patient was seen independently by Nurse Practitioner. This document was prepared using [employer] dictation software. Please allow for errors in technical program manager while rare they do occur. Michael Alexandre NP rendered care for this patient independently, reviewed the findings and plan as documented in the note above. I did not physically speak with or examine the patient on this date. Objective - Vital Signs Vital signs: Vital Signs Temp 97.7 F 03/03/24 07:53 Pulse 99 03/03/24 07:53 Resp 20 03/03/24 07:53 BP 145/83 03/03/24 07:53 Pulse Ox 96 03/03/24 07:53 FiO2 Intake & Output 03/02/24 03/03/24 03/03/24 18:59 06:59 18:59 Output Total 0 0 Balance 0 0 Weight 63.503 kg 56.5 kg Output: Urine 0 0 Other: Voiding Method External Catheter - Labs CBC & Chem 7: 03/03/24 07:30 03/03/24 14:48 Labs: Abnormal Lab Results - Last 24 Hours (Table) 03/02/24 03/02/24 03/02/24 Range/Units 09:06 09:06 09:06 RBC 3.68 L (3.80-5.40) m/uL Lymphocytes # 0.5 L (1.0-4.8) k/uL Sodium 115 L* (137-145) mmol/L Chloride 86 L (98-107) mmol/L Carbon Dioxide 18 L (22-30) mmol/L Glucose 134 H (74-99) mg/dL Osmolality (275-295) mOsm/kg Uric Acid (3.7-7.4) mg/dL Magnesium (1.6-2.3) mg/dL Total Bilirubin 2.1 H (0.2-1.3) mg/dL Total Protein (6.3-8.2) g/dL Albumin (3.5-5.0) g/dL Urine Protein Trace H (Negative) Urine Glucose (UA) 1+ H (Negative) Urine Ketones 2+ H (Negative) Urine Blood Moderate H (Negative) Ur Leukocyte Esterase Moderate H (Negative) Urine RBC 25 H (0-5) /hpf Urine WBC 7 H (0-5) /hpf Urine Bacteria Occasional H (None) /hpf Urine Mucus Rare H (None) /hpf 03/02/24 03/02/24 03/02/24 Range/Units 11:13 11:13 16:47 RBC (3.80-5.40) m/uL Lymphocytes # (1.0-4.8) k/uL Sodium 118 L* 117 L* (137-145) mmol/L Chloride 91 L (98-107) mmol/L Carbon Dioxide 18 L (22-30) mmol/L Glucose 124 H (74-99) mg/dL Osmolality 253 L (275-295) mOsm/kg Uric Acid 2.9 L (3.7-7.4) mg/dL Magnesium 1.3 L (1.6-2.3) mg/dL Total Bilirubin 1.9 H (0.2-1.3) mg/dL Total Protein 5.9 L (6.3-8.2) g/dL Albumin (3.5-5.0) g/dL Urine Protein (Negative) Urine Glucose (UA) (Negative) Urine Ketones (Negative) Urine Blood (Negative) Ur Leukocyte Esterase (Negative) Urine RBC (0-5) /hpf Urine WBC (0-5) /hpf Urine Bacteria (None) /hpf Urine Mucus (None) /hpf 03/03/24 Range/Units 00:29 RBC (3.80-5.40) m/uL Lymphocytes # (1.0-4.8) k/uL Sodium 116 L* (137-145) mmol/L Chloride 90 L (98-107) mmol/L Carbon Dioxide 18 L (22-30) mmol/L Glucose 102 H (74-99) mg/dL Osmolality (275-295) mOsm/kg Uric Acid (3.7-7.4) mg/dL Magnesium (1.6-2.3) mg/dL Total Bilirubin 1.9 H (0.2-1.3) mg/dL Total Protein 5.6 L (6.3-8.2) g/dL Albumin 3.4 L (3.5-5.0) g/dL Urine Protein (Negative) Urine Glucose (UA) (Negative) Urine Ketones (Negative) Urine Blood (Negative) Ur Leukocyte Esterase (Negative) Urine RBC (0-5) /hpf Urine WBC (0-5) /hpf Urine Bacteria (None) /hpf Urine Mucus (None) /hpf
[2024-03-03 15:47] LABS: African American GFR (CKD) 85 (>60 ml/min/1.73 sqM); Anion Gap 10 mmol/L; Blood Urea Nitrogen 11 mg/dL (7-17); Calcium 8.5 mg/dL (8.4-10.2); Carbon Dioxide 19 mmol/L (22-30); Chloride 86 mmol/L (98-107); Glucose 129 mg/dL (74-99); Non-African American GFR(CKD) 74 (>60 ml/min/1.73 sqM)
[2024-03-03 15:59] LABS: Sodium 115 mmol/L (137-145)
[2024-03-03] MEDS: TOLVAPTAN 15 MG TABLET PO ONE (17:02)
--- NOTE | 2024-03-03 19:03 | CA ---
Transthoracic Echo Report Name: Radha Marin Age: 88 Gender: F : 1935 Exam Date: 03/03/2024 13:24 Exam Location: [place] Echo Ht (in): 62 Wt (lb): 124 Ordering Physician: Iron Dickens MD ([id number]) Attending/Referring Phys: Engine Oiler Camryn Washburn RDCS Procedure CPT: Indications: afib Cardiac Hx: A-FIB Technical Quality: Fair Contrast 1: Total Dose (mL): Contrast 2: Total Dose (mL): MEASUREMENTS (Male / Female) Normal Values 2D ECHO LV Diastolic Diameter PLAX 4.1 cm 4.2 - 5.9 / 3.9 - 5.3 cm LV Systolic Diameter PLAX 2.8 cm IVS Diastolic Thickness 1.2 cm 0.6 - 1.0 / 0.6 - 0.9 cm LVPW Diastolic Thickness 1.1 cm 0.6 - 1.0 / 0.6 - 0.9 cm LV Relative Wall Thickness 0.6 RV Internal Dim ED PLAX 2.5 cm LA Systolic Diameter LX 4.2 cm 3.0 - 4.0 / 2.7 - 3.8 cm LV Diastolic Volume MOD BP 34.3 cm??? 67 - 155 / 56 - 104 cm??? LV Systolic Volume MOD BP 19.4 cm??? 22 - 58 / 19 - 49 cm??? LV Ejection Fraction MOD BP 43.4 % >= 55 % LV Cardiac Index MOD BP 1021.7 cm???/min???m??? LV Diastolic Volume MOD 4C 42.6 cm??? LV Systolic Volume MOD 4C 18.8 cm??? LV Ejection Fraction MOD 4C 55.8 % LV Cardiac Index MOD 4C 1627.9 cm???/min???m??? LV Diastolic Length 4C 6.4 cm LV Systolic Length 4C 5.0 cm LV Diastolic Volume MOD 2C 21.8 cm??? LV Systolic Volume MOD 2C 17.5 cm??? LV Ejection Fraction MOD 2C 19.8 % LV Cardiac Index MOD 2C 295.3 cm???/min???m??? LV Diastolic Length 2C 4.9 cm LV Systolic Length 2C 4.8 cm M-MODE Aortic Root Diameter MM 3.2 cm LA Systolic Diameter MM 4.8 cm LA Ao Ratio MM 1.5 AV Cusp Separation MM 1.6 cm DOPPLER AI Peak Velocity 442.9 cm/s AI Peak Gradient 78.5 mmHg AI Pressure Half Time 745.8 ms LVOT Peak Velocity 90.5 cm/s LVOT Peak Gradient 3.3 mmHg LVOT Velocity Time Integral 16.4 cm Mitral E Point Velocity 97.7 cm/s Mitral A Point Velocity 1.7 cm/s Mitral E to A Ratio 56.8 MV Deceleration Time 267.7 ms TR Peak Velocity 257.3 cm/s TR Peak Gradient 26.5 mmHg FINDINGS Left Ventricle Left ventricular ejection fraction is estimated at 50-55 %. Mildly increased septal wall thickness. Mildly increased posterior wall thickness. No obvious regional wall motion abnormalities. Left ventricular cavity size normal. Right Ventricle Normal right ventricular size and function. Right ventricular systolic pressure within normal limits. Right Atrium Mild right atrial dilatation. Left Atrium Moderate left atrial dilatation. Mitral Valve Structurally normal mitral valve. Mitral valve thickened. Mitral annular calcification. Moderate mitral regurgitation. Aortic Valve Trileaflet aortic valve. Diffuse thickening (sclerosis) of the aortic valve cusps without reduced excursion. Trace to mild aortic regurgitation. Tricuspid Valve Structurally normal tricuspid valve. Mild tricuspid regurgitation. No tricuspid stenosis. Pulmonic Valve Structurally normal pulmonic valve. No pulmonic stenosis. Moderate pulmonic regurgitation. Pericardium No pericardial or pleural effusion. Aorta Normal size aortic root and proximal ascending aorta. CONCLUSIONS Diagnosis: Atrial fibrillation with RVR Preserved LV size and systolic function Normal RV size and function Moderate left atrial enlargement Previewed by: Dr. Roman Dan MD (Electronically Signed) Final Date: 03 March 2024 19:03
[2024-03-04] MEDS: SODIUM CHLORIDE TAB 1 GM TAB PO STA ×2 (00:43→16:34)
[2024-03-04] MEDS: PROCHLORPERAZINE INJ 10 MG/2 ML VIAL IVP PRN (01:08)
[2024-03-04 07:30] LABS: HCT 31.4 % (34.0-46.0); HGB 10.9 gm/dL (11.4-16.0); MCH 34.4 pg (25.0-35.0); MCHC 34.7 g/dL (31.0-37.0); MCV 99.2 fL (80.0-100.0); Mean Platelet Volume 8.2; Platelet Count 198 k/uL (150-450); RBC 3.17 m/uL (3.80-5.40); RDW 12.4 % (11.5-15.5); WBC 9.4 k/uL (3.8-10.6)
[2024-03-04 07:42] LABS: Magnesium 2.1 mg/dL (1.6-2.3)
[2024-03-04 08:23] LABS: African American GFR (CKD) 87 (>60 ml/min/1.73 sqM); Anion Gap 3 mmol/L; Blood Urea Nitrogen 10 mg/dL (7-17); Calcium 8.5 mg/dL (8.4-10.2); Carbon Dioxide 25 mmol/L (22-30); Chloride 90 mmol/L (98-107); Glucose 123 mg/dL (74-99); Non-African American GFR(CKD) 76 (>60 ml/min/1.73 sqM); Potassium 3.9 mmol/L (3.5-5.1)
[2024-03-04 08:39] LABS: Sodium 118 mmol/L (137-145)
[2024-03-04] MEDS: TOLVAPTAN 15 MG TABLET PO ONE ×2 (10:43→21:20)
--- NOTE | 2024-03-04 11:14 | P.PN ---
Subjective patient is seen for follow-up for hyponatremia. Serum sodium improved initially with normal saline and has since then been at 116-117 with no further improvement. It dropped further to 113 last night. Patient did receive Samsca last evening and sodium has improved to 118 today. Currently off of IV fluids. Urine osmolality is elevated at 550 with random urine sodium of 94. 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 Poor oral intake. No nausea or vomiting noted. Blood pressure is not low. Objective - Vital Signs Vital signs: Vital Signs Temp 97.5 F L 03/04/24 08:40 Pulse 103 H 03/04/24 08:40 Resp 18 03/04/24 08:40 BP 135/75 03/04/24 08:40 Pulse Ox 96 03/04/24 08:40 FiO2 Intake & Output 03/03/24 03/04/24 03/04/24 18:59 06:59 18:59 Intake Total 10 Output Total 1600 1200 Balance -1600 -1190 Weight 56.5 kg 47 kg Intake: IV 10 Invasive Line 1 10 Output: Urine 1600 1000 Emesis 200 Other: Voiding Method External Catheter External Catheter # Bowel Movements 1 - Exam Patient is awake, comfortable, no acute distress. 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 - Labs CBC & Chem 7: 03/04/24 07:06 03/04/24 07:06 Labs: Abnormal Lab Results - Last 24 Hours (Table) 03/03/24 03/03/24 03/04/24 Range/Units 14:48 22:56 07:06 RBC 3.17 L (3.80-5.40) m/uL Hgb 10.9 L (11.4-16.0) gm/dL Hct 31.4 L (34.0-46.0) % Sodium 115 L* 113 L* (137-145) mmol/L Chloride 86 L (98-107) mmol/L Carbon Dioxide 19 L (22-30) mmol/L Glucose 129 H (74-99) mg/dL 03/04/24 Range/Units 07:06 RBC (3.80-5.40) m/uL Hgb (11.4-16.0) gm/dL Hct (34.0-46.0) % Sodium 118 L* (137-145) mmol/L Chloride 90 L (98-107) mmol/L Carbon Dioxide (22-30) mmol/L Glucose 123 H (74-99) mg/dL Assessment and Plan Assessment: 1. Hyponatremia, hypovolemic initially with improvement in serum sodium with normal saline. Currently euvolemic. Serum sodium has not improved further after hypovolemic component was corrected. Urine osmolality at 550 and random urine sodium of 94. 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 status post [facility]24 2. Chronic A-fib maintained on Eliquis for anticoagulation. 3. Nongap metabolic acidosis secondary to diarrhea. 4. A. fib with RVR with controlled ventricular response Plan: maintain off of IV fluids. Repeat [facility] Repeat sodium at around 1:59 PM She is also encouraged to increase oral intake particularly protein. Control pain
--- NOTE | 2024-03-04 15:18 | P.PN ---
Subjective Progress Note Date: 03/04/24 No new complaints today. Patient was little bit sleepy and confused on examination. Sodium is improving status post Samsca yesterday. Gen: In NAD, non-toxic HEENT: normocephalic, atraumatic, hearing acuity is intant, mucous membranes moist CVS: perfusing all extremities well, no pitting edema, Respiratory: symmetric chest expansion, no accessory muscle use, GI: soft, NTTP, ND, : no suprapubic tenderness, no CVA tenderness MSK/Derm: no rashes, cyanosis Neuro: CN II-XII intact, no motor weakness, Hospital course: Hospital Course: Patient is a very pleasant 88-year-old female with a past medical history of CAD, atrial fibrillation on anticoagulation with Eliquis, and stage III chronic kidney disease. She presented to the hospital 03/02/2024 with a chief complaint of dizziness, nausea, vomiting, and diarrhea starting shortly after concerns of being outside in the heat for an extended period of time on 03/01/2024. Upon arrival to our facility, patient underwent evaluation in the emergency department. Vital signs upon arrival show blood pressure 167/117, heart rate 111, respiratory rate 16, temp 97.9 F, and SpO2 of 96% on room air. EKG completed showing atrial fibrillation with RVR at 118 bpm. Labs completed and reviewed. CBC was unremarkable with WBC count of 7.9, hemoglobin of 12.6 and platelet count of 238,000. BMP showing metabolic alkalosis with severe hyponatremia with sodium of 115, hypochloremia with chloride of 86, bicarb of 18, and anion gap of 11. Renal function was unremarkable with BUN of 11, creatinine of 0.69, and GFR of 78. Glucose was 134. Lactic acid 1.5. Liver profile showing elevated total bili of 2.1. Troponin 0.016. Patient admitted under our services with consultations to nephrology and cardiology. Assessment and Plan of Care: Severe Hypochloremic Hyponatremia, suspect acute secondary to dehydration Metabolic alkalosis, secondary to dehydration from N/V/D Intractable nausea, vomiting, and diarrhea Hypomagnesemia Hyperbilirubinemia, believed to be reactive secondary to intractable nausea, vomiting and diarrhea -Continue gentle IV fluid hydration with 0.9% normal saline at 75 cc/h as recommended by range technician -Nephrology following and discussed case with Dr. Edward, recommending continuation of gentle IV fluid hydration with 0.9% normal saline at 75 cc/h. -Continued close monitoring of sodium levels with repeat BMP every 6 hours. -Seizure precautions, fall precautions, and neurochecks placed. -Patient to remain on continuous telemetry monitoring -TSH normal findings at 1.310. Urine osmolality 550, random urine sodium of 94. Serum osmolality was low at 253 with uric acid of 2.9. -Compazine 10 mg IVP every 6 hours as needed for nausea or vomiting. Atrial fibrillation with RVR -Patient to continue Eliquis 2.5 mg twice daily and metoprolol 25 mg twice daily. -Cardiology following and discussed plan of care with Dr. Dickens, recommending repeating echocardiogram. -Telemetry monitoring. Stage IIIa chronic kidney disease -Renal function stable at this time. Data and imaging reviewed: -Sodium levels trended throughout the night resulting at 115, 118, 117, 116, and 117. -Morning labs showing CBC with macrocytic anemia with hemoglobin of 10.3. BMP showing persistent hyponatremia with sodium of 117 and hypochloremic metabolic acidosis with chloride of 94, bicarb of 19, and anion gap of 4. Blood glucose 99. Magnesium was low at 1.5. proBNP was 7660 and albumin is 3.2. -Blood pressure 145/83, heart rate 99, respiratory rate 20, temp 97.7 F, and SpO2 of 96% on room air. CODE STATUS: Full Code DVT prophylaxis: Eliquis Anticipated discharge date: Pending clinical course Anticipated discharge place: Pending clinical course Objective - Vital Signs Vital signs: Vital Signs Temp 97.3 F L 03/04/24 11:01 Pulse 117 H 03/04/24 11:01 Resp 18 03/04/24 11:01 BP 112/73 03/04/24 11:01 Pulse Ox 95 03/04/24 11:01 FiO2 Intake & Output 03/03/24 03/04/24 03/04/24 18:59 06:59 18:59 Intake Total 10 128 Output Total 1600 1200 Balance -1600 -1190 128 Weight 56.5 kg 47 kg Intake: IV 10 10 Invasive Line 1 10 Invasive Line 2 10 Oral 118 Output: Urine 1600 1000 Emesis 200 Other: Voiding Method External Catheter External Catheter External Catheter # Voids 1 # Bowel Movements 1 1 - Labs CBC & Chem 7: 03/04/24 07:06 03/04/24 13:04 Labs: Abnormal Lab Results - Last 24 Hours (Table) 03/03/24 03/03/24 03/04/24 Range/Units 14:48 22:56 07:06 RBC 3.17 L (3.80-5.40) m/uL Hgb 10.9 L (11.4-16.0) gm/dL Hct 31.4 L (34.0-46.0) % Sodium 115 L* 113 L* (137-145) mmol/L Chloride 86 L (98-107) mmol/L Carbon Dioxide 19 L (22-30) mmol/L Glucose 129 H (74-99) mg/dL 03/04/24 03/04/24 Range/Units 07:06 13:04 RBC (3.80-5.40) m/uL Hgb (11.4-16.0) gm/dL Hct (34.0-46.0) % Sodium 118 L* 118 L* (137-145) mmol/L Chloride 90 L (98-107) mmol/L Carbon Dioxide (22-30) mmol/L Glucose 123 H (74-99) mg/dL
--- NOTE | 2024-03-04 18:54 | P.PN ---
Subjective Progress Note Date: 03/04/24 HISTORY OF PRESENTING ILLNESS 88-year-old female with past medical history of persistent atrial fibrillation managed on Eliquis and metoprolol. She is known to Dr. Jacobs. He presents to the hospital because of complaints of nausea, dizziness vomiting. Everything started yesterday morning while patient was waiting in the garage for 45 minutes for a ride to the doctor's appointment. On admission it was noted that she had electrolyte imbalance with hyponatremia, BUN 11, creatinine 0.6, lactate 1.5, troponin is 0.016. Progress note March 04, 2024 Patient's heart rate is controlled. Blood pressure is better controlled. Sodium is improving on tolvaptan. PHYSICAL EXAMINATION Vital signs reviewed. Head: Normocephalic. Eyes: Sclerae nonicteric. Neck: Brisk carotid upstroke, no jugular venous distention. Lungs: Clear to auscultation. Heart: Irregularly irregular, S1-S2, no S3, no murmur or rub. Abdomen: Soft nontender, positive bowel sounds. Extremities: Chronic 1+ edema which is nonpitting in bilateral lower extremity, intact distal pulses. Neuro: Alert, oritented, no focal deficits. Detailed neuro exam was not performed. ASSESSMENT Atrial fibrillation with RVR, currently rate controlled, persistent atrial fibrillation Hyponatremia Nausea and diarrhea Generalized weakness Echocardiogram showed EF of 55% with no significant valvular heart disease, no regional wall motion abnormality, severe left atrial dilatation PLAN Continue metoprolol 25 mg twice daily and Eliquis 2.5 mg twice daily Would appreciate nephrology recommendations. Patient does have elevated BNP of 7000. Clinically she does not appear significantly volume overloaded. I will not add further diuretics as I feel that this might lead her to have more hyponatremia. Would appreciate nephrology recommendations on this. At this time patient does not want any aggressive cardiac workup. I offered her GOVIND cardioversion and patient is not interested in cardioversion procedure at this time. Objective - Vital Signs Vital signs: Vital Signs Temp 98.1 F 03/04/24 15:58 Pulse 99 03/04/24 15:58 Resp 18 03/04/24 15:58 BP 144/86 03/04/24 15:58 Pulse Ox 95 03/04/24 15:58 FiO2 Intake & Output 03/03/24 03/04/24 03/04/24 18:59 06:59 18:59 Intake Total 10 328 Output Total 1600 1200 600 Balance -1600 -1190 -272 Weight 56.5 kg 47 kg Intake: IV 10 10 Invasive Line 1 10 Invasive Line 2 10 Oral 318 Output: Urine 1600 1000 600 Emesis 200 Other: Voiding Method External Catheter External Catheter External Catheter # Voids 1 # Bowel Movements 1 1 - Labs CBC & Chem 7: 03/04/24 07:06 03/04/24 17:46 Labs: Abnormal Lab Results - Last 24 Hours (Table) 03/03/24 03/04/24 03/04/24 Range/Units 22:56 07:06 07:06 RBC 3.17 L (3.80-5.40) m/uL Hgb 10.9 L (11.4-16.0) gm/dL Hct 31.4 L (34.0-46.0) % Sodium 113 L* 118 L* (137-145) mmol/L Chloride 90 L (98-107) mmol/L Glucose 123 H (74-99) mg/dL 03/04/24 03/04/24 Range/Units 13:04 17:46 RBC (3.80-5.40) m/uL Hgb (11.4-16.0) gm/dL Hct (34.0-46.0) % Sodium 118 L* 120 L (137-145) mmol/L Chloride (98-107) mmol/L Glucose (74-99) mg/dL
[2024-03-05 07:54] LABS: African American GFR (CKD) 82 (>60 ml/min/1.73 sqM); Anion Gap 4 mmol/L; Blood Urea Nitrogen 11 mg/dL (7-17); Carbon Dioxide 26 mmol/L (22-30); Chloride 94 mmol/L (98-107); Glucose 115 mg/dL (74-99); Non-African American GFR(CKD) 72 (>60 ml/min/1.73 sqM); Potassium 4.2 mmol/L (3.5-5.1); Sodium 124 mmol/L (137-145)
--- NOTE | 2024-03-05 10:25 | P.PN ---
Subjective Progress Note Date: 03/05/24 No new complaints today. Patient is alert and interactive, feels improved. Na up to 125. HRs still 120s. Pt is still considering GOVIND/CV, but at this time is not interested. Gen: In NAD, non-toxic HEENT: normocephalic, atraumatic, hearing acuity is intant, mucous membranes moist CVS: perfusing all extremities well, no pitting edema, Respiratory: symmetric chest expansion, no accessory muscle use, GI: soft, NTTP, ND, : no suprapubic tenderness, no CVA tenderness MSK/Derm: no rashes, cyanosis Neuro: CN II-XII intact, no motor weakness, Hospital course: Hospital Course: Patient is a very pleasant 88-year-old female with a past medical history of CAD, atrial fibrillation on anticoagulation with Eliquis, and stage III chronic kidney disease. She presented to the hospital 03/02/2024 with a chief complaint of dizziness, nausea, vomiting, and diarrhea starting shortly after concerns of being outside in the heat for an extended period of time on 03/01/2024. Upon a rrival to our facility, patient underwent evaluation in the emergency department. Vital signs upon arrival show blood pressure 167/117, heart rate 111, respiratory rate 16, temp 97.9 F, and SpO2 of 96% on room air. EKG completed showing atrial fibrillation with RVR at 118 bpm. Labs completed and reviewed. CBC was unremarkable with WBC count of 7.9, hemoglobin of 12.6 and platelet count of 238,000. BMP showing metabolic alkalosis with severe hyponatremia with sodium of 115, hypochloremia with chloride of 86, bicarb of 18, and anion gap of 11. Renal function was unremarkable with BUN of 11, creatinine of 0.69, and GFR of 78. Glucose was 134. Lactic acid 1.5. Liver profile showing elevated total bili of 2.1. Troponin 0.016. Patient admitted under our services with consultations to nephrology and cardiology. Assessment and Plan of Care: Severe Hypochloremic Hyponatremia, suspect acute secondary to dehydration Metabolic alkalosis, secondary to dehydration from N/V/D Intractable nausea, vomiting, and diarrhea Hypomagnesemia Hyperbilirubinemia, believed to be reactive secondary to intractable nausea, vomiting and diarrhea -Continue gentle IV fluid hydration with 0.9% normal saline at 75 cc/h as recommended by pipe finishing supervisor -Nephrology following and discussed case with Dr. Edward, recommending continuation of gentle IV fluid hydration with 0.9% normal saline at 75 cc/h. -Continued close monitoring of sodium levels with repeat BMP every 6 hours. -Seizure precautions, fall precautions, and neurochecks placed. -Patient to remain on continuous telemetry monitoring -TSH normal findings at 1.310. Urine osmolality 550, random urine sodium of 94. Serum osmolality was low at 253 with uric acid of 2.9. -Compazine 10 mg IVP every 6 hours as needed for nausea or vomiting. Atrial fibrillation with RVR -Patient to continue Eliquis 2.5 mg twice daily and metoprolol 25 mg twice daily. -Cardiology following and discussed plan of care with Dr. Dickens, recommending repeating echocardiogram. -Telemetry monitoring. Stage IIIa chronic kidney disease -Renal function stable at this time. Data and imaging reviewed: -Sodium levels trended throughout the night resulting at 115, 118, 117, 116, and 117. -Morning labs showing CBC with macrocytic anemia with hemoglobin of 10.3. BMP showing persistent hyponatremia with sodium of 117 and hypochloremic metabolic acidosis with chloride of 94, bicarb of 19, and anion gap of 4. Blood glucose 99. Magnesium was low at 1.5. proBNP was 7660 and albumin is 3.2. -Blood pressure 145/83, heart rate 99, respiratory rate 20, temp 97.7 F, and SpO2 of 96% on room air. CODE STATUS: Full Code DVT prophylaxis: Eliquis Anticipated discharge date: Pending clinical course Anticipated discharge place: Pending clinical course Objective - Vital Signs Vital signs: Vital Signs Temp 97.6 F 03/05/24 07:42 Pulse 120 H 03/05/24 07:43 Resp 16 03/05/24 07:42 BP 141/85 03/05/24 07:42 Pulse Ox 94 L 03/05/24 07:42 FiO2 Intake & Output 03/04/24 03/05/24 03/05/24 18:59 06:59 18:59 Intake Total 328 10 118 Output Total 600 800 Balance -272 -790 118 Weight 49.5 kg Intake: IV 10 10 Invasive Line 2 10 10 Oral 318 118 Output: Urine 600 800 Other: Voiding Method External Catheter External Catheter External Catheter # Voids 1 # Bowel Movements 1 2 - Labs CBC & Chem 7: 03/04/24 07:06 03/05/24 06:55 Labs: Abnormal Lab Results - Last 24 Hours (Table) 03/04/24 03/04/24 03/05/24 Range/Units 13:04 17:46 06:55 Sodium 118 L* 120 L 124 L (137-145) mmol/L Chloride 94 L (98-107) mmol/L Glucose 115 H (74-99) mg/dL
[2024-03-05] MEDS: TOLVAPTAN 30 MG TABLET PO ONE (11:59)
--- NOTE | 2024-03-05 12:28 | P.PN ---
Subjective patient is seen for follow-up for hyponatremia. Serum sodium improved initially with normal saline and has since then been at 116-117 with no further improvement. It dropped further to 113. Patient subsequently received Samsca sodium continues to improve. Currently off of IV fluids. Urine osmolality is elevated at 550 with random urine sodium of 94. 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 Poor oral intake. No nausea or vomiting noted. Blood pressure is not low. Objective - Vital Signs Vital signs: Vital Signs Temp 97.4 F L 03/05/24 11:58 Pulse 98 03/05/24 11:58 Resp 16 03/05/24 11:58 BP 135/78 03/05/24 11:58 Pulse Ox 96 03/05/24 11:58 FiO2 Intake & Output 03/04/24 03/05/24 03/05/24 18:59 06:59 18:59 Intake Total 328 10 118 Output Total 600 800 Balance -272 -790 118 Weight 49.5 kg Intake: IV 10 10 Invasive Line 2 10 10 Oral 318 118 Output: Urine 600 800 Other: Voiding Method External Catheter External Catheter External Catheter # Voids 1 # Bowel Movements 1 2 - Exam Patient is awake, comfortable, no acute distress. Examination of the heart S1 and S2 Examination of the lungs bilateral breath sounds are heard Abdomen is soft nontender Examination of lower extremities shows no significant edema [employer]MENT PLANT TECHNICIAN exam grossly intact - Labs CBC & Chem 7: 03/04/24 07:06 03/05/24 06:55 Labs: Abnormal Lab Results - Last 24 Hours (Table) 03/04/24 03/04/24 03/05/24 Range/Units 13:04 17:46 06:55 Sodium 118 L* 120 L 124 L (137-145) mmol/L Chloride 94 L (98-107) mmol/L Glucose 115 H (74-99) mg/dL Assessment and Plan Assessment: 1. Hyponatremia, hypovolemic initially with improvement in serum sodium with normal saline. Currently euvolemic. Serum sodium has not improved further after hypovolemic component was corrected. Urine osmolality at 550 and random urine sodium of 94. 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 status post Samsca with improvement in serum sodium. Patient has been receiving Samsca daily for last 2 days. 2. Chronic A-fib maintained on Eliquis for anticoagulation. 3. Nongap metabolic acidosis secondary to diarrhea. 4. A. fib with RVR with controlled ventricular response Plan: maintain off of IV fluids. Repeat Samsca She is also encouraged to increase oral intake particularly protein. Control pain
[2024-03-05] MEDS: DILTIAZEM 125 MG in SODIUM CHLORIDE 0.9% 100 ML IV SCH (17:39)
--- NOTE | 2024-03-05 17:58 | P.PN ---
Subjective Progress Note Date: 03/05/24 HISTORY OF PRESENTING ILLNESS 88-year-old female with past medical history of persistent atrial fibrillation managed on Eliquis and metoprolol. She is known to Dr. Jacobs. He presents to the hospital because of complaints of nausea, dizziness vomiting. Everything started yesterday morning while patient was waiting in the garage for 45 minutes for a ride to the doctor's appointment. On admission it was noted that she had electrolyte imbalance with hyponatremia, BUN 11, creatinine 0.6, lactate 1.5, troponin is 0.016. Progress note March 04, 2024 Patient's heart rate is controlled. Blood pressure is better controlled. Sodium is improving on tolvaptan. March 05, 2024 Patient continues to be in atrial fibrillation with RVR. Will start patient on IV Cardizem drip. PHYSICAL EXAMINATION Vital signs reviewed. Head: Normocephalic. Eyes: Sclerae nonicteric. Neck: Brisk carotid upstroke, no jugular venous distention. Lungs: Clear to auscultation. Heart: Irregularly irregular, S1-S2, no S3, no murmur or rub. Abdomen: Soft nontender, positive bowel sounds. Extremities: Chronic 1+ edema which is nonpitting in bilateral lower extremity, intact distal pulses. Neuro: Alert, oritented, no focal deficits. Detailed neuro exam was not performed. ASSESSMENT Atrial fibrillation with RVR, was rate controlled yesterday, today is in RVR persistent atrial fibrillation Hyponatremia Nausea and diarrhea Generalized weakness Echocardiogram showed EF of 55% with no significant valvular heart disease, no regional wall motion abnormality, severe left atrial dilatation PLAN Continue metoprolol 25 mg twice daily and Eliquis 2.5 mg twice daily Start IV Cardizem drip Would appreciate nephrology recommendations. Patient does have elevated BNP of 7000. Clinically she does not appear significantly volume overloaded. I will not add further diuretics as I feel that this might lead her to have more hyponatremia. Would appreciate nephrology recommendations on this. At this time patient does not want any aggressive cardiac workup. I offered her GOVIND cardioversion and patient is not interested in cardioversion procedure at this time. Objective - Vital Signs Vital signs: Vital Signs Temp 98.0 F 03/05/24 15:05 Pulse 111 H 03/05/24 15:05 Resp 16 03/05/24 15:05 BP 152/91 03/05/24 15:05 Pulse Ox 96 03/05/24 15:05 FiO2 Intake & Output 03/04/24 03/05/24 03/05/24 18:59 06:59 18:59 Intake Total 328 10 598 Output Total 795 794 8956 Balance -272 -790 -602 Weight 49.5 kg Intake: IV 10 10 10 Invasive Line 2 10 10 10 Oral 318 588 Output: Urine 211 334 8352 Other: Voiding Method External Catheter External Catheter External Catheter # Voids 1 # Bowel Movements 1 2 - Labs CBC & Chem 7: 03/04/24 07:06 03/05/24 06:55 Labs: Abnormal Lab Results - Last 24 Hours (Table) 03/04/24 03/05/24 Range/Units 17:46 06:55 Sodium 120 L 124 L (137-145) mmol/L Chloride 94 L (98-107) mmol/L Glucose 115 H (74-99) mg/dL
[2024-03-05] MEDS: ALPRAZolam 0.25 MG TAB PO STA (21:44)
[2024-03-06 03:28] VITALS: BP 134/82; PULSE 89; RESP 16; TEMP 98
[2024-03-29 12:12] LABS: Glucose 125 mg/dL (74-99); Sodium 128 mmol/L (137-145)
[2024-03-29 12:13] LABS: African American GFR (CKD) 78 (>60 ml/min/1.73 sqM); Anion Gap 5 mmol/L; Blood Urea Nitrogen 13 mg/dL (7-17); Calcium 9.2 mg/dL (8.4-10.2); Carbon Dioxide 23 mmol/L (22-30); Chloride 100 mmol/L (98-107); Magnesium 2.1 mg/dL (1.6-2.3); Non-African American GFR(CKD) 68 (>60 ml/min/1.73 sqM); Potassium 4.3 mmol/L (3.5-5.1)
[2024-03-29 12:14] LABS: HCT 34.1 % (34.0-46.0); HGB 11.5 gm/dL (11.4-16.0); Lymphocytes % (A) 9 %; MCH 34.9 pg (25.0-35.0); MCHC 33.8 g/dL (31.0-37.0); MCV 103.4 fL (80.0-100.0); Neutrophils % (A) 78 %; Platelet Count 250 k/uL (150-450); RDW 12.4 % (11.5-15.5); WBC 7.2 k/uL (3.8-10.6)
[2024-03-29 12:15] LABS: Basophils # (A) 0.1 k/uL (0-0.2); Basophils % (A) 1 %; Eosinophils # (A) 0.2 k/uL (0-0.7); Eosinophils % (A) 2 %; Lymphocytes # (A) 0.7 k/uL (1.0-4.8); Monocytes # (A) 0.7 k/uL (0-1.0); Monocytes % (A) 9 %; Neutrophils # (A) 5.6 k/uL (1.3-7.7)
== END 2024-03-07 15:52 | DRG 641 ==
LOC: EC 08:45 → 3SCARD 11:32
PROVIDERS: ADMIT Student in an Organized Health Care Education/Training Program; ATTEND Student in an Organized Health Care Education/Training Program
DX: E87.1 Hypo-osmolality and hyponatremia (principal); I48.19 Other persistent atrial fibrillation; R17 Unspecified jaundice; E78.5 Hyperlipidemia, unspecified; N18.31 Chronic kidney disease, stage 3a; I25.10 Atherosclerotic heart disease of native coronary artery without angina pectoris; E83.42 Hypomagnesemia; E86.1 Hypovolemia; D53.9 Nutritional anemia, unspecified; F41.9 Anxiety disorder, unspecified; R19.7 Diarrhea, unspecified; E87.4 Mixed disorder of acid-base balance; E87.8 Other disorders of electrolyte and fluid balance, not elsewhere classified; Z79.01 Long term (current) use of anticoagulants; Z79.899 Other long term (current) drug therapy
CPT/HCPCS: 36415; 51702; 71046; 80048; 80053; 81001; 82150; 83605; 83690; 83735; 83880; 83930; 83935; 84295; 84300; 84443; 84484; 84550; 85025; 85027; 87324; 87636; 93005; 93306; 96361; 96374; 96375; 99291

== ENCOUNTER 2024-03-10 21:00 | Inpatient (IN) | payer MEDICARE, OTHER ==
[~2024-03-10 21:00] MED LIST: DILTIAZEM 5 MG/ML 5 ML VIAL ONE; LORazepam 2 MG/ML INJ ONE; MORPHINE SULFATE 4 MG/ML SYRINGE ONE
[2024-03-10] MEDS ORDERED: cefTRIAXone 2 GM VIAL ONE (22:29)
[2024-03-10] MEDS ORDERED: AZITHROMYCIN 500 MG VIAL IVPB ONE (22:29)
[2024-03-10] MEDS ORDERED: PANTOPRAZOLE 40 MG/10 ML VIAL ONE (23:37)
[2024-03-11] MEDS ORDERED: LORazepam 2 MG/ML INJ ONE ×2 (08:22→14:57)
[2024-03-11] MEDS ORDERED: MORPHINE SULFATE 4 MG/ML SYRINGE ONE ×2 (12:09→17:45)
[2024-03-11] MEDS ORDERED: SCOPOLAMINE 1 MG/72 HR PATCH TRANSDERM ONE (23:59)
[2024-03-12] MEDS ORDERED: MORPHINE SULFATE 4 MG/ML SYRINGE ONE (04:33)
[2024-03-12] MEDS ORDERED: LORazepam 2 MG/ML INJ ONE ×2 (07:02→13:44)
[2024-03-12] MEDS ORDERED: SODIUM CHLORIDE 0.9% 100 ML BAG ONE (23:59)
[2024-03-12] MEDS ORDERED: MORPHINE SULFATE 100 MG/2ML 20ML (MDV) ONE (23:59)
[2024-03-13] MEDS ORDERED: ACETAMINOPHEN IV (For NPO) 100 ML ONE (16:18)
--- NOTE | 2024-04-17 10:21 | XR ---
Patient Radha Marin ID [id number] Order # EXAMINATION TYPE: XR chest 1V DATE OF EXAM: 03/19/2024 COMPARISON: No comparison available on downtime PACS. INDICATION: This TECHNIQUE: Single frontal view of the chest is obtained. FINDINGS: The heart size is prominent. The pulmonary vasculature is normal. The lungs are clear. IMPRESSION: 1. Cardiomegaly. 2. No acute pulmonary process.
== END 2024-03-13 16:28 | disposition expired | DRG 951 ==
LOC: DISRECOVER 21:00 → UNDOADMIN 03-11 20:25 → 3NCARDOBS 03-11 20:25 → UNDODISIN 03-13 16:28
PROVIDERS: ADMIT Hospitalist; ATTEND Hospitalist
DX: Z51.5 Encounter for palliative care (principal); G93.41 Metabolic encephalopathy; K92.2 Gastrointestinal hemorrhage, unspecified; D62 Acute posthemorrhagic anemia; I48.91 Unspecified atrial fibrillation; Z66 Do not resuscitate
CPT/HCPCS: 71045; 87040; 96361; 96374; 96375; 99285